=== PATIENT | male | born 1950 | race Caucasian/White ===

== ENCOUNTER 2016-08-18 08:50 | Day surgery (SDC) | payer BC ==
[2016-08-18] MEDS ORDERED: PROPOFOL 10 MG/ML VIAL IV ONE (14:00)
[2016-08-18] MEDS ORDERED: LIDOCAINE 2% MDV (20MG/ML) 20ML VIAL IV ONE (14:00)
[2016-08-18] MEDS ORDERED: MIDAZOLAM HCL 2MG/2ML VIAL IV ONE (14:00)
--- NOTE | 2016-08-19 14:40 | Operative Note ---
DATE OF SURGERY: 08/18/2016 SURGEON: Abhishek Chahal DO REFERRING PHYSICIAN: Tadeo Romero D.O. OPERATION: SCREENING COLONOSCOPY PREOPERATIVE DIAGNOSIS: Colon cancer screening, average risk. POSTOPERATIVE DIAGNOSES: Sigmoid diverticulosis. PREPARATION QUALITY: Good. ESTIMATED BLOOD LOSS: None. SPECIMENS: None. PROCEDURE: After informed consent was obtained with the patient, he was placed in the lateral decubitus position in the endoscopy suite, sedated and monitored by the Department of Anesthesia. Digital rectal examination was unremarkable. A well-lubricated PCF 180 colonoscope was inserted in the rectum and advanced to the cecum. The preparation quality was good. The appendicial orifice, ileocecal valve, cecum, ascending colon, transverse colon, descending colon, sigmoid colon, and rectum were free of inflammatory changes, mass, or lesions, or polyps. There were mild diverticular changes in the sigmoid colon. There was also an inverted diverticulum that was noted. The rectum was unremarkable in forward and in J-turn views. The endoscope was straightened, the rectal ampulla deflated. The endoscope was removed. RECOMMENDATIONS: The patient was advised to resume his medications and follow a high fiber diet. I recommended a repeat exam in 10 years, or sooner should symptoms warrant it. As always, thank you for allowing me to participate in the care of your patient. Abhishek Chahal DO CC: Dr. Abhishek Romero D.O. [facility] SYSTEM[facility]
== END 2016-08-18 11:30 | disposition home or self-care (01) ==
LOC: HOP 08:50
PROVIDERS: ATTEND Internal Medicine Gastroenterology
DX: Z12.11 Encounter for screening for malignant neoplasm of colon (principal); E11.9 Type 2 diabetes mellitus without complications; Z79.84 Long term (current) use of oral hypoglycemic drugs; E78.00 Pure hypercholesterolemia, unspecified; I10 Essential (primary) hypertension; K57.30 Diverticulosis of large intestine without perforation or abscess without bleeding
CPT/HCPCS: 00810; G0121

== ENCOUNTER 2017-12-06 10:18 | Observation (INO) | payer BC ==
[2017-12-06] MEDS ORDERED: ASPIRIN 325 MG TABLET PO ONE (10:48)
--- NOTE | 2017-12-06 10:56 | Emergency Department Record ---
History of Present Illness - General Chief Complaint: Shortness of breath Stated Complaint: WEAKNESS/SHORTNESS OF BREATH Time Seen by Provider: 12/06/17 10:36 Source: Patient Mode of Arrival: Ambulatory Limitations: No limitations - History of Present Illness Initial Comments: The patient is here due to a 2 month hx of progressive SOB and FALL. The patient has a hx of CHF and an EF < 20%. He denies any CP or cough or leg swelling. 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 MD Complaint: Shortness of breath Onset/Timin -: Month(s) Severity: Mild Consistency: Intermittent Improves With: Rest Worsens With: Exertion Known History Of: Congestive heart failure Associated Symptoms: Denies other symptoms Treatments Prior to Arrival: None - Related Data Home Medications Medication Instructions Recorded Confirmed Last Taken Aspirin [Adult Aspirin Regimen] 81 mg PO DAILY 12/06/17 12/06/17 12/06/17 Carvedilol 25 mg PO DAILY 12/06/17 12/06/17 12/06/17 Furosemide 40 mg PO ASDIR 12/06/17 12/06/17 12/06/17 Metformin HCl 500 mg PO BID 12/06/17 12/06/17 12/06/17 Potassium Chloride [Klor-Con 10 meq PO ASDIR 12/06/17 12/06/17 12/06/17 Sprinkle] Sacubitril/Valsartan [Entresto 49 1 tab PO BID 12/06/17 12/06/17 12/06/17 mg-51 mg Tablet] Simvastatin 40 mg PO QHS 12/06/17 12/06/17 12/05/17 Allergies Allergy/AdvReac Type Severity Reaction Status Date / Time No Known Drug Allergies Allergy Verified 12/06/17 10:25 Travel Screening - Travel/Exposure Within Last 30 Days Have you traveled within the last 30 days?: No - Travel/Exposure Within Last Year Have you traveled outside the [place] in the last year?: No - Additonal Travel Details Have you been exposed to anyone with a communicable illness?: No - Travel Symptoms Symptom Screening: None Review of Systems Constitutional: Denies: Chills, Fever Eyes: Denies: Eye discharge ENT: Denies: Congestion Respiratory: Reports: Dyspnea. Denies: Cough, Hemoptysis Cardiovascular: Denies: Arrhythmia, Chest pain Endocrine: Reports: Fatigue Gastrointestinal: Denies: Abdominal pain Genitourinary: Denies: Hematuria Musculoskeletal: Denies: Arthralgia, Back pain Past Medical History - SOCIAL HISTORY Smoking Status: Never smoker Alcohol Use: None Drug Use: None - RESPIRATORY Hx Respiratory Disorders: Yes Hx Pulmonary Embolism: Yes - CARDIOVASCULAR Hx Cardio Disorders: Yes Hx Abnormal EKG: Yes Hx Chest Pain: Yes Hx CHF: Yes Hx Deep Vein Thrombosis: Yes Hx Hypertension: Yes Hx Irregular Heartbeat: Yes Hx Pacemaker/Defib: Yes Comment:: high cholesterol - NEURO Hx Neuro Disorders: No - GI Hx GI Disorders: Yes Hx of Polyps: Yes - Hx Genitourinary Disorders: No - ENDOCRINE Hx Endocrine Disorders: Yes Hx Diabetes: Yes - MUSCULOSKELETAL Hx Musculoskeletal Disorders: No - PSYCH Hx Psych Problems: No - HEMATOLOGY/ONCOLOGY Hx Hematology/Oncology Disorders: Yes Hx Cancer: Yes (angiosarcoma) Hx Chemotherapy: Yes Hx Radiation Therapy: Yes Family Medical History Any Significant Family History?: Yes Hx Cancer: Mother Hx Heart Disease: Father Physical Exam - General General Appearance: Alert, Oriented x3, Cooperative, No acute distress - Head Head exam: Atraumatic, Normocephalic, Normal inspection - Eye Eye exam: Normal appearance, PERRL - ENT Throat exam: Normal inspection. negative: Tonsillar erythema, Tonsillar exudate - Neck Neck exam: Normal inspection, Full ROM. negative: Tenderness - Respiratory Respiratory exam: Normal lung sounds bilaterally. negative: Respiratory distress - Cardiovascular Cardiovascular Exam: Regular rate, Normal rhythm, Normal heart sounds. negative : Diastolic murmur, Systolic murmur - GI/Abdominal GI/Abdominal exam: Soft, Normal bowel sounds. negative: Tenderness - Extremities Extremities exam: Normal inspection, Full ROM, Normal capillary refill. negative: Tenderness - Neurological Neurological exam: Alert. negative: Motor sensory deficit Course Vital Signs 12/06/17 10:33 Temperature 97.5 F L Pulse Rate 60 Respiratory 18 Rate Blood Pressure 105/76 Pulse Ox 97 - Reevaluation(s) Reevaluation #1: The patient is doing well at this time. I did discuss the case with Dr. Girard and he did recommend that the patient stay in the hospital overnight to abiel. I then did discuss the case with Dr. Schneider and he did accept the admission. 12/06/17 12:40 12/06/17 12:43 Medical Decision Making - Lab Data Result diagrams: 12/06/17 10:40 12/06/17 10:40 Disposition Disposition: Admit Clinical Impression: CHF (congestive heart failure) Qualifiers: Heart failure type: unspecified Heart failure chronicity: unspecified Qualified Code(s): I50.9 - Heart failure, unspecified Disposition: Still a Patient at [facility] Decision to Admit: Admit from ER Decision to Admit Date: 12/06/17 Decision to Admit Time: 12:44 Accepting Physician: Jennie Time Discussed w/Accepting Physician: 12:44 Condition: (2) Stable Forms: Patient Portal Access Time of Disposition: 12:44 Quality - Quality Measures Quality Measures: N/A - Blood Pressure Screening View Details: Yes Does Patient Have Any of the Following: No Blood Pressure Classification: Normal BP Reading Systolic Measurement: 105 Diastolic Measurement: 76 Screening for High Blood Pressure: < Normal BP, F/U Not Required > [G8783]
[2017-12-06 11:01] LABS: BASO % 0.3 % (0-6); EOS % 3.4 % (0-6); GRAN % 67.6 % (47-80); HEMATOCRIT 44.6 % (42.0-52.0); HEMOGLOBIN 14.4 gm/dl (14.0-18.0); LYMPH % 19.5 % (16-45); MEAN CELL VOLUME 92.7 fl (81-97); MEAN CORPUSCULAR HEMOGLOBIN 29.9 pg (27-33); MEAN CORPUSCULAR HGB CONC 32.3 g/dl (32-36); MONO % 9.2 % (0-9); PLATELET COUNT 163 K/uL (130-400); RED BLOOD COUNT 4.81 M/uL (4.40-5.70); WHITE BLOOD COUNT W/O DIFF 7.1 K/uL (4.2-12.2)
[2017-12-06 11:14] LABS: BLOOD UREA NITROGEN 14 mg/dL (8-23); CREATININE 1.1 mg/dL (0.7-1.2); EST GLOMERULAR FILTRATION RATE > 60 mL/min
[2017-12-06 11:15] LABS: TOTAL PROTEIN 6.7 g/dL (6.6-8.7)
[2017-12-06 11:17] LABS: GLUCOSE,RANDOM 99 mg/dL (74-109)
[2017-12-06 11:19] LABS: ALT/SGPT 31 U/L (<41); AST/SGOT 26 U/L (10.0-50.0); INR 1.1; PARTIAL THROMBOPLASTIN TIME 27.8 SECONDS (24.5-39.1)
[2017-12-06 11:20] LABS: ALB/GLOB RATIO 1.4 (1.1-1.8); ALBUMIN 3.9 g/dL (4.0-5.0); ALKALINE PHOSPHATASE 103 U/L (40-129); CREATINE PHOSPHOKINASE 73 U/L (39-308)
[2017-12-06] MEDS ORDERED: FUROSEMIDE IV 40MG/4ML VIAL IVP ONE (12:16)
[2017-12-06] MEDS ORDERED: ACETAMINOPHEN 500 MG TABLET PO PRN (14:26)
[2017-12-06] MEDS ORDERED: FUROSEMIDE IV 40MG/4ML VIAL IVP SCH (16:00)
[2017-12-06 17:46] LABS: CKMB 2.9 ng/mL (<6.73)
--- NOTE | 2017-12-06 20:17 | Medical Records Consult ---
DATE OF CONSULTATION: 12/06/17 INDICATION: FATIGUE. ORDERED PHYSICIAN: DR. KWADWO GARCIA. BRIEF HISTORY: David Levin is a 67-year-old male. He sees Dr. Dilshad Dickson for paroxysmal atrial fibrillation, cardiomyopathy, combined systolic and diastolic heart failure. He states he has been feeling fatigued for about three months. No chest pain. He hasn't noticed any lower extremity edema. No shortness of breath. He still cuts the lawn and does yard work. Again, his only complaint is fatigue. Initial lab work is unremarkable showing sodium of 145. Potassium 4. Creatinine 1.1. BUN 14. Hemoglobin 14.4. EKG shows sinus rhythm with first-degree AV block. He was able to be initiated on Entresto but he really hasn't noticed much of a difference to date in terms of his functional capacity. PAST MEDICAL HISTORY: Ventricular tachycardia. Paroxysmal atrial fibrillation. Dilated cardiomyopathy. Ischemic cardiomyopathy. Chronic combined systolic and diastolic heart failure. Hyperlipidemia. ALLERGIES: NO KNOWN DRUG ALLERGIES. MEDICATIONS LISTED ON LAST OFFICE NOTE: Coreg 25 mg b.i.d. Lasix 40 mg every other day Potassium Chloride every other day Metformin 500 mg b.i.d. Simvastatin 40 mg daily Iron Sulfate daily Centrum Silver b.i.d. Aspirin 81 mg daily Fish Oil 300 mg daily Vitamin C Extended Release daily Entresto 49/51 one p.o. every 12 hours Benadryl 25 mg capsule every h.s. REVIEW OF SYSTEMS: GENERAL: No fevers, chills, night sweats. Just generalized fatigue for the last three months. HEENT: No acute hearing/vision changes. CARDIOVASCULAR: No chest pain. No change in functional capacity. No syncope. No defibrillator shocks. PULMONARY: No cough or hemoptysis. GI: No nausea, vomiting. No tarry or bloody stools. : No dysuria or hematuria. ENDOCRINE: Positive for diabetes mellitus. HEME: No unexplained bruising or bleeding. NEUROMUSCULAR: No stroke or seizure history. PHYSICAL EXAMINATION: Vital Signs: Please see E.R. record. GENERAL: Alert, in no apparent distress. HEENT: Normocephalic, atraumatic. NECK: Supple. No JVD. No carotid bruits. CARDIOVASCULAR: Regular rhythm. No murmur is appreciated. PULMONARY: Clear to auscultation. No accessory muscle use. ABDOMEN: Soft, nontender, nondistended. EXTREMITIES: No edema. Pedal pulses are intact. NEUROMUSCULAR: Speech is clear. Answers all questions appropriately. ASSESSMENT/PLAN: 1. FATIGUE, UNCLEAR ETIOLOGY: He is not anemic based on his lab work. 2. HISTORY OF CHRONIC SYSTOLIC HEART FAILURE AND DIASTOLIC HEART FAILURE: He appears euvolemic in the clinic today. A trial could be done of giving him his Lasix every day for two or three days and see if that makes a difference, with close monitoring of his electrolytes. This can be done in an inpatient setting if he wishes. He does have an appointment with Dr. Dickson on December 15. If he wants to go up on his Lasix at home, he could take it every day with potassium every day when he takes the Lasix and then I would give him a lab sheet when he leaves the E.R., if he decides not to be admitted, to have a basic metabolic check just a day or two before he sees Dr. Dickson. It appears he has a non- ischemic cardiomyopathy based on a heart catheterization in 2004. With his diabetes, would certainly recommend statin therapy with blood pressure and lipid management according to guidelines. JOB NUMBER: [id number] MTDD
[2017-12-06] MEDS: CARVEDILOL 12.5 MG TABLET PO SCH (21:07)
[2017-12-06] MEDS: METFORMIN 500 MG TABLET PO SCH (21:08)
[2017-12-06] MEDS: SACUBITRIL PO SCH (21:12)
[2017-12-06] MEDS: VALSARTAN PO SCH (21:12)
[2017-12-06] MEDS ORDERED: ASPIRIN 81 MG TABEC PO SCH (22:00)
[2017-12-06] MEDS ORDERED: SIMVASTATIN 20 MG TABLET PO SCH (22:00)
--- NOTE | 2017-12-07 07:14 | RADIOLOGY REPORT ---
EXAM: CHEST, TWO VIEWS HISTORY: CHEST PAIN. TECHNIQUE: Frontal and lateral views of the chest were obtained. Comparison: Prior chest from 05/16/11. FINDINGS: The heart is enlarged. Right sided pacing device. Osteopenia with COPD. The lungs are clear. No pneumothorax. IMPRESSION: COPD. NO ACUTE CARDIOPULMONARY PROCESS. JOB NUMBER: [id number] MTDD
[2017-12-07 07:18] LABS: BLOOD UREA NITROGEN 14 mg/dL (8-23); EST GLOMERULAR FILTRATION RATE > 60 mL/min; GLUCOSE,RANDOM 88 mg/dL (74-109)
--- NOTE | 2017-12-07 08:14 | Discharge Note ---
VTE H&P Assessment - Risk for VTE Risk for VTE: Yes Risk Level: Very Low Risk Assessment Date: 12/06/17 Risk Assessment Time: 13:00 VTE Orders Placed or Will Be Placed: No VTE Reason for No Prophylaxis: Not Indicated Discharge Medications - Discharge Medications Prescriptions: Furosemide [Lasix] 40 mg PO DAILY #30 tablet Potassium Chloride [Klor-Con] 20 meq PO DAILY #30 tablet.sa Home Medications: Ambulatory Orders Aspirin [Adult Aspirin Regimen] 81 mg PO QHS 12/06/17 [Last Taken 12/06/17] Carvedilol 25 mg PO BID 12/06/17 [Last Taken 12/06/17] Furosemide 40 mg PO Q48H 12/06/17 [Last Taken 12/06/17] Metformin HCl 500 mg PO BID 12/06/17 [Last Taken 12/06/17] Potassium Chloride [Klor-Con] 20 meq PO Q48H 12/06/17 [Last Taken 12/06/17] Sacubitril/Valsartan [Entresto 49 mg-51 mg Tablet] 1 tab PO BID 12/06/17 [Last Taken 12/06/17] Simvastatin 40 mg PO QHS 12/06/17 [Last Taken 12/05/17] Acetaminophen [Tylenol 500Mg Tab] 500 mg PO Q6H PRN tablet 12/07/17 [Last Taken Unknown] Furosemide [Lasix] 40 mg PO DAILY #30 tablet 12/07/17 [Last Taken Unknown] Potassium Chloride [Klor-Con] 20 meq PO DAILY #30 tablet.sa 12/07/17 [Last Taken Unknown] Discharge Note - Date Date of Discharge Note: 12/07/17 Disposition: Home, Self-Care Condition: (2) Stable Additional Instructions: follow up with Dr Christina in one to two weeks follow up with Dr Dickson in one to two weeks lasix 40 mg once a day potassium 20 meq once a day Forms: Patient Portal Access Activity at Discharge: Increase Activity as Tolerated
[2017-12-07] MEDS: METFORMIN 500 MG TABLET PO SCH (09:48)
[2017-12-07] MEDS: CARVEDILOL 12.5 MG TABLET PO SCH (09:49)
[2017-12-07] MEDS: VALSARTAN PO SCH (09:51)
[2017-12-07] MEDS: SACUBITRIL PO SCH (09:51)
[2017-12-07] MEDS ORDERED: POTASSIUM CHLORIDE 20 MEQ TABLET PO SCH (10:00)
[2017-12-07] MEDS ORDERED: FUROSEMIDE IV 40MG/4ML VIAL IVP SCH (10:00)
[2017-12-07] MEDS ORDERED: FLU VAC QS 2017-18 (INPT, 6MO+) 60MCG/0.5ML IM ONE (10:00)
--- NOTE | 2017-12-07 12:30 | History and Physical Report ---
DATE: 12/06/2017 CHIEF COMPLAINT: Short of breath. HISTORY OF PRESENT ILLNESS: This 67-year-old male states he has been short of breath progressively worse over the last 2 months. He has a history of congestive heart failure with ejection fraction of 20%. He has a pacer defibrillator. His senior telecommunications engineer is Dr. Dickson and his partner Dr. Girard was consulted and he recommended by phone to diurese the patient in the hospital overnight. The patient states that the reason he came to the hospital was to get some free samples of Entresto 49/51 one b.i.d. He was running out of the free samples he was getting because it was too expensive. He was getting it through the specialty clinic. However, he saw [facility] and I think Dr. Dickson was also there. They recommended he go over to the ER for either an EKG or an evaluation, and at that point Dr. Olguin saw him and he was admitted to the hospital for diuresis and serial cardiac enzymes. He also states the heat was bothering him. He really did not seem in any distress when I evaluated him. He says that he is diuresing nicely at this point. He had a urinal in front of him with about 400 mL in it with dark urine but mostly he said he was here to have the Entresto samples and he also had outpatient surgery scheduled at of today but he canceled that for tear duct surgery for placing stents in his eyes on the left eye. 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 PAST MEDICAL HISTORY: Diabetes, hypercholesterolemia, cardiomyopathy with a low ejection fraction, hypertension, history of congestive heart failure, chest pain, pulmonary embolism, GERD, polyps in the colon, diabetes mellitus [id number] on metformin. His primary physician is Dr. Tadeo Christina. PAST SURGICAL HISTORY: Hernia x2, T&A, defibrillator/pacer, colonoscopy, tumor above the left eye. MEDICATIONS: 1. Aspirin 81 mg daily. 2. Carvedilol 25 mg b.i.d. 3. Metformin 500 mg b.i.d. 4. Lasix 40 mg daily. 5. Potassium chloride 10 mEq daily. 6. Entresto 49/51 one b.i.d. 7. Simvastatin 40 mg at h.s. ALLERGIES: No known drug allergies. FAMILY/PSYCHOSOCIAL HISTORY: Mother had cancer. Father had heart disease. Never smoked. No alcohol or drug use. REVIEW OF SYSTEMS: HEENT: No upper respiratory infection symptoms, cough, cold, or congestion. Cardiovascular: No chest pain, palpitations, or arrhythmia. Respiratory: He states he is short of breath progressively worse over the last 2 months. See Chief Complaint. Gastrointestinal: No nausea, vomiting, diarrhea, black stools, or bloody stools. Genitourinary: No dysuria, hematuria, frequency, or burning on urination. Musculoskeletal: No joint or bone abnormalities. Neurological: No CVA, paralysis, or paresthesias. Endocrine: He has diabetes mellitus type 2, on metformin. Integument: No rash, ulcers, change in moles, or yellow skin. He had angiosarcoma of the skin of the forehead and he also had multiple surgeries on that spot and he was supposed to have a [facility] surgery today to place stents in his tear ducts in the left eye which has been canceled. PHYSICAL EXAMINATION: VITALS: Height 6 feet 2 inches, weight 213 pounds, temperature 97.5, blood pressure 105/76, respiratory rate 18, pulse ox 97% on room air. HEENT: Pupils are equal, round, and reactive to light and accommodation. Extraocular muscles are intact. Throat is clear. Nose is clear. Tympanic membranes are owens. NECK: Supple. No jugular venous distention. No hepatojugular reflux. No carotid bruits. Thyroid is smooth. CARDIOVASCULAR: Regular rate and rhythm without murmurs, clicks, rubs, or gallops. RESPIRATORY: No rales heard in the posterior bases; however, he has diuresed a bit. ABDOMEN: Soft, nontender. No hepatosplenomegaly, no masses, no tenderness. Bowel sounds are active. No bruits. EXTREMITIES: No pitting edema, no cyanosis, no clubbing. Full range of motion. Peripheral pulses are good. BREASTS: Normal male breasts. RECTAL: Exam deferred. GENITALIA: Deferred. NEUROLOGIC: Cranial nerves II-XII intact. No gross defects. Sensation normal, strength normal. Deep tendon reflexes equal bilaterally with Babinski negative. MENTAL STATUS: Alert and oriented x3. IMPRESSION: 1. Congestive heart failure. 2. Dyspnea. 3. Cardiomyopathy with ejection fraction of about 20% with a pacemaker and defibrillator. 4. History of angiosarcoma of the forehead and had 2 surgeries, chemo and radiation in 2016 and he is scheduled for a [facility] stent placement in the ducts of the left eye. 5. History of hypercholesterolemia. 6. History of hypertension. PLAN: Diuresis 40 mg IV b.i.d. Serial cardiac enzymes. Serial EKGs. Will discuss the case with [facility]. His laboratory showing troponin T was normal. The NT-proBNP was 7902. BUN 14, creatinine 1.1, potassium 4.0. EKG showing a paced rhythm. Chest x-ray showing COPD, nothing acute. MTDD
--- NOTE | 2017-12-07 12:30 | Discharge Summary ---
DATE: 12/07/2017 DISCHARGE DIAGNOSES: 1. Mild congestive heart failure. 2. Cardiomyopathy with pacer/defibrillator. 3. Diabetes mellitus type 2. ATTENDING PHYSICIAN: Lauro Schneider DO REASON FOR HOSPITALIZATION: This 67-year-old male slightly short of breath progressively worse over 2-3 months. 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 Unfortunately, they did not have any samples available and they felt he still has about a week's worth of Entresto left but while he was there, he told them he was a little short of breath. They recommended he go to the emergency department and he really did not feel that much short of breath; however, he just mentioned it. He was evaluated by Dr. Olguin in the emergency department, given some IV Lasix, and admitted to the hospital for observation and further evaluation. Dr. Girard was aware of this. He felt that maybe a little diuresis would help him and then to follow up with Dr. Dickson afterwards. After the 40 of Lasix was given in the emergency department, he said he felt much better, almost to the fact that he could even go home. He was put in the hospital and monitor showing a paced rhythm with some PVCs and occasionally he goes into his own rhythm at 10 p.m. on 12/06/2017 which had small QRS complexes. The computer was not reading those and reading the rhythm out as a bradycardia, which is was more the pacemaker was shut off and he was in his own rhythm which appears sinus with a first-degree AV block. He was asymptomatic during this episode and he has been asymptomatic throughout the hospitalization. SIGNIFICANT FINDINGS: Cardiac enzymes normal x3 time points. CPK and troponin T. His brain natriuretic peptide is 7900. Potassium was on the low end of normal at 3.6 on discharge and his BUN was 14, creatinine 1.0, sodium 144. EKG showing paced rhythm with premature ventricular contraction and some underlying rhythm. He has a pacer/defibrillator. Chest x-ray showing no acute cardiopulmonary process, COPD. He had no edema in his legs. His belly was a little bit swollen. The heat was very extreme on the day he came in, in the 90s. This may have had some bearing on his dyspnea. THERAPY PROVIDED: He was given 1 dose of IV Lasix. He diuresed nicely. He was also switched over to Lasix once a day instead of every 48 hours which he was having at home. Also, the potassium is 20 mEq now once a day instead of every other day. This may need to be adjusted back to every 48 hours depending on how he does when he sees Dr. Dickson in 1 week. HOSPITAL COURSE: Really, he has been asymptomatic during the hospitalization. He was only slightly short of breath. Most he came into the hospital to get samples of Entresto and things evolved as he was in the hospital. CONDITION ON DISCHARGE: Improved and stable. Pacemaker looks like it is functioning adequately but I think that it would be nice to have the pacemaker interrogated by Dr. Dickson to make sure there are no concerns about what is happening with the pacemaker/defibrillator. DISCHARGE INSTRUCTIONS: Follow up with Dr. Dickson next Monday in 8 days as scheduled. Follow up with Dr. Christina in 1-2 weeks to get him caught up on what has happened. DISCHARGE MEDICATION: 1. Lasix 40 mg daily. 2. Potassium chloride 20 mEq daily. 3. Carvedilol 25 mg b.i.d. 4. Metformin 500 mg b.i.d. 5. Entresto 49/51 b.i.d. 6. Simvastatin 40 mg q.h.s. 7. Aspirin 81 mg daily. MTDD
== END 2017-12-07 10:15 | disposition home or self-care (01) ==
LOC: ER 10:18 → MEDSURG 13:39
PROVIDERS: ADMIT Emergency Medicine; ATTEND Emergency Medicine
DX: I50.9 Heart failure, unspecified (principal); I48.0 Paroxysmal atrial fibrillation; I10 Essential (primary) hypertension; E78.00 Pure hypercholesterolemia, unspecified; E11.9 Type 2 diabetes mellitus without complications; Z79.84 Long term (current) use of oral hypoglycemic drugs; Z95.810 Presence of automatic (implantable) cardiac defibrillator; Z86.718 Personal history of other venous thrombosis and embolism; Z86.711 Personal history of pulmonary embolism; Z85.828 Personal history of other malignant neoplasm of skin; I42.8 Other cardiomyopathies; I47.2 Ventricular tachycardia
CPT/HCPCS: 82550; 83735; 85025; 85730; 85610; 82553 ×2; 80048; 80053; 84484 ×2; 83880; 71046; 94760; 93005 ×2; 93010 ×2; G0378 ×2; 96374; 99217; 99220; 99285; J1940

== ENCOUNTER 2018-02-23 12:09 | Emergency (ER) | payer BC ==
[2018-02-23] MEDS ORDERED: ASPIRIN 81 MG CHEWABLE TABLET PO ONE (12:42)
--- NOTE | 2018-02-23 12:57 | Emergency Department Record ---
History of Present Illness - General Chief Complaint: Cough Stated Complaint: COUGHING/SHORT OF BREATH Time Seen by Provider: 02/23/18 12:29 Mode of Arrival: Ambulatory - History of Present Illness Initial Comments: patient coughing with a hoarse voice and his granddaughter has a cough and the patient has productive sputum and he was in the hospital november 2017 for CHF. Patient has a pacer defibrillator and he is able to carry on a conversation and not sob laying flat. Onset/Timin -: Days(s) Consistency: Intermittent - Related Data Home Medications Medication Instructions Recorded Confirmed Last Taken Clopidogrel Bisulfate [Plavix] 75 mg PO DAILY 02/23/18 02/23/18 02/23/18 Fish Oil/Dha/Epa [Fish Oil 1,200 1 tab PO DAILY 02/23/18 02/23/18 02/23/18 mg Fish Oil] Multivit-Min/FA/Lycopen/Lutein 1 tab PO DAILY 02/23/18 02/23/18 02/23/18 [Centrum Silver Men Tablet] Previous Rx's Medication Instructions Recorded Acetaminophen [Tylenol 500Mg Tab] 500 mg PO Q6H PRN tablet 12/07/17 Furosemide [Lasix] 40 mg PO DAILY #30 tablet 12/07/17 Potassium Chloride [Klor-Con] 20 meq PO DAILY #30 tablet.sa 12/07/17 Azithromycin 250 mg PO DAILY #6 tablet 02/23/18 Allergies Allergy/AdvReac Type Severity Reaction Status Date / Time No Known Drug Allergies Allergy Verified 02/23/18 12:11 Travel Screening - Travel/Exposure Within Last 30 Days Have you traveled within the last 30 days?: No - Travel/Exposure Within Last Year Have you traveled outside the [place] in the last year?: No - Additonal Travel Details Have you been exposed to anyone with a communicable illness?: No - Travel Symptoms Symptom Screening: None Review of Systems Reviewed: No additional complaints except as noted below Constitutional: Reports: As per HPI. Denies: Chills, Fever, Malaise, Night sweats, Weakness, Weight change Eyes: Reports: As per HPI. Denies: Eye discharge, Eye pain, Photophobia, Vision change ENT: Reports: As per HPI, Congestion, Throat pain. Denies: Dental pain, Ear pain, Epistaxis, Hearing loss Respiratory: Reports: As per HPI, Cough. Denies: Dyspnea, Hemoptysis, Stridor, Wheezes Cardiovascular: Reports: As per HPI. Denies: Arrhythmia, Chest pain, Dyspnea on exertion, Edema, Murmurs, Orthopnea, Palpitations, Paroxysmal nocturnal dyspnea, Rheumatic Fever, Syncope Endocrine: Reports: As per HPI. Denies: Fatigue, Heat or cold intolerance, Polydipsia, Polyuria Gastrointestinal: Reports: As per HPI. Denies: Abdominal pain, Constipation, Diarrhea, Hematemesis, Hematochezia, Melena, Nausea, Vomiting Genitourinary: Reports: As per HPI. Denies: Dysuria, Frequency, Hematuria, Incontinence, Retention, Testicular pain, Testicular mass, Urgency Musculoskeletal: Reports: As per HPI. Denies: Arthralgia, Back pain, Gout, Joint swelling, Myalgia, Neck pain Skin: Reports: As per HPI. Denies: Bruising, Change in color, Change in hair/ nails, Lesions, Pruritus, Rash Neurological: Reports: As per HPI. Denies: Abnormal gait, Confusion, Headache, Numbness, Paresthesias, Seizure, Tingling, Tremors, Vertigo, Weakness Psychiatric: Reports: As per HPI. Denies: Anxiety, Auditory hallucinations, Depression, Homicidal thoughts, Suicidal thoughts, Visual hallucinations Hematological/Lymphatic: Reports: As per HPI. Denies: Anemia, Blood Clots, Easy bleeding, Easy bruising, Swollen glands Past Medical History - SOCIAL HISTORY Smoking Status: Never smoker Alcohol Use: None Drug Use: None - RESPIRATORY Hx Respiratory Disorders: Yes Hx Asthma: No Hx Bronchitis: No Hx COPD: No Hx Dyspnea: No Hx Pneumonia: No Hx Pulmonary Embolism: Yes Hx Sleep Apnea: No Hx Tuberculosis: No Hx of CPAP: No - CARDIOVASCULAR Hx Cardio Disorders: Yes Hx Abnormal EKG: Yes Hx Cardiac Cath: No Hx Chest Pain: Yes Hx CHF: Yes Hx Deep Vein Thrombosis: Yes Hx Edema: No Hx Heart Attack: No Hx Hypertension: Yes Hx Hypotension: No Hx Irregular Heartbeat: Yes Hx Palpitations: No Hx Pacemaker/Defib: Yes Hx Vascular Disease: No Comment:: high cholesterol - NEURO Hx Neuro Disorders: No - GI Hx GI Disorders: Yes Hx Abdominal Pain: No Hx Celiac Disease: No Hx Crohn's Disease: No Hx Diverticulitis: No Hx GI Bleed: No Hx Reflux: No Hx Hepatitis/Jaundice: No Hx Hiatal Hernia: No Hx Irritable Bowel: No Hx Liver Disease: No Hx Nausea/Vomiting: No Hx Obstructive Bowel: No Hx Pancreatitis: No Hx Rectal Bleeding: No Hx Ulcer: No Hx Wt Loss/Wt Gain: No Hx of Polyps: Yes - Hx Genitourinary Disorders: No - ENDOCRINE Hx Endocrine Disorders: Yes Hx Diabetes: Yes Hx Thyroid Disease: No - MUSCULOSKELETAL Hx Musculoskeletal Disorders: No - PSYCH Hx Psych Problems: No - HEMATOLOGY/ONCOLOGY Hx Hematology/Oncology Disorders: Yes Hx Anemia: No Hx Blood Disorders: No Hx Bruising: Yes Hx Cancer: Yes (angiosarcoma) Hx Chemotherapy: Yes Hx Radiation Therapy: Yes Hx Clotting Problems: No Hx Sickle Cell Disease: No Hx Unexplained Bleeding: No Hx Blood Transfusions: No Hx Blood Transfusion Reaction: No Family Medical History Any Significant Family History?: Yes Hx Cancer: Mother Hx Heart Disease: Father Physical Exam - General General Appearance: Alert, Oriented x3, Cooperative, No acute distress - Head Head exam: Normal inspection - Eye Eye exam: Normal appearance, PERRL Pupils: Normal accommodation - ENT ENT exam: Normal exam, Mucous membranes moist, Normal external ear exam, Normal orophraynx, TM's normal bilaterally Ear exam: Normal external inspection. negative: External canal tenderness Nasal Exam: Normal inspection. negative: Discharge, Sinus tenderness Mouth exam: Normal external inspection, Tongue normal, Other (hoarse voice) Teeth exam: Normal inspection. negative: Dental caries Throat exam: Normal inspection. negative: Tonsillar erythema, Tonsillar exudate - Neck Neck exam: Normal inspection, Full ROM. negative: Tenderness - Respiratory Respiratory exam: Normal lung sounds bilaterally, Other (cough with deep breathing). negative: Rales, Respiratory distress, Wheezes - Cardiovascular Cardiovascular Exam: Regular rate, Normal rhythm, Normal heart sounds - GI/Abdominal GI/Abdominal exam: Soft, Normal bowel sounds. negative: Tenderness - Rectal Rectal exam: Deferred - exam: Deferred - Extremities Extremities exam: Normal inspection, Full ROM, Normal capillary refill. negative: Pedal edema, Tenderness - Back Back exam: Reports: Normal inspection, Full ROM. Denies: Muscle spasm, Rash noted, Tenderness - Neurological Neurological exam: Alert, Normal gait, Oriented X3, Reflexes normal - Psychiatric Psychiatric exam: Normal affect, Normal mood - Skin Skin exam: Dry, Intact, Normal color, Warm Course Vital Signs 02/23/18 12:19 Temperature 97.7 F Pulse Rate 63 Respiratory 20 Rate Blood Pressure 120/83 Pulse Ox 97 Medical Decision Making - Data Complexity MDM Data: Labs Ordered and/or Reviewed (wbc 4,600, step negative,trop t neg), X- Ray Ordered and/or Reviewed (No acute changes and similiar to previous chest xray 12/07/2017), EKG Ordered and/or Reviewed (Sinus LBBB ,first degree av block, ) - Lab Data Result diagrams: 02/23/18 12:55 02/23/18 12:55 Disposition Clinical Impression: Bronchitis Disposition: Home, Self-Care Condition: (1) Good Instructions: Acute Bronchitis (ED) Additional Instructions: follow up with Dr. Romero in 5 days rest and use tylenol for fever robitussin DM cough syrup 10 ml every 4 hours Prescriptions: Azithromycin 250 mg PO DAILY #6 tablet Forms: Patient Portal Access Time of Disposition: 13:42 Quality - Quality Measures Quality Measures: N/A - Blood Pressure Screening Does Patient Have Any of the Following: No Blood Pressure Classification: Pre-Hypertensive BP Reading Systolic Measurement: 120 Diastolic Measurement: 83 Screening for High Blood Pressure: < Pre-Hypertensive BP, F/U Documented > [ G8950] Pre-Hypertensive Follow-up Interventions: Referral to alternative/primary care provider.
[2018-02-23 13:05] LABS: BASO % 0.4 % (0-6); EOS % 6.3 % (0-6); GRAN % 59.4 % (47-80); HEMATOCRIT 40.4 % (42.0-52.0); HEMOGLOBIN 12.9 gm/dl (14.0-18.0); LYMPH % 24.6 % (16-45); MEAN CELL VOLUME 93.5 fl (81-97); MEAN CORPUSCULAR HGB CONC 31.9 g/dl (32-36); MONO % 9.3 % (0-9); PLATELET COUNT 130 K/uL (130-400); RED BLOOD COUNT 4.32 M/uL (4.40-5.70); RED CELL DISTRIBUTION WIDTH 15.2 % (11.5-14.5); WHITE BLOOD COUNT W/O DIFF 4.6 K/uL (4.2-12.2)
[2018-02-23 13:06] LABS: MEAN CORPUSCULAR HEMOGLOBIN 29.8 pg (27-33)
[2018-02-23 13:16] LABS: BLOOD UREA NITROGEN 14 mg/dL (8-23); CREATININE 0.9 mg/dL (0.7-1.2); EST GLOMERULAR FILTRATION RATE > 60 mL/min
[2018-02-23 13:19] LABS: GLUCOSE,RANDOM 111 mg/dL (74-109)
[2018-02-23] MEDS ORDERED: AZITHROMYCIN 500 MG TABLET PO ONE (13:39)
--- NOTE | 2018-02-25 22:45 | RADIOLOGY REPORT ---
EXAM: CHEST 2 VIEWS HISTORY: COUGH AND CHEST TIGHTNESS FOR A DAY. TECHNIQUE: PA and lateral views. COMPARISON: Two-view chest 12/06/17. FINDINGS: Mild cardiomegaly, stable. Mild torsion of the aorta, stable. ICD remains in place. No pneumothorax or pleural effusion evident. The lungs again appear hyperinflated suggesting underlying COPD. No definite acute infiltrate seen when comparison is made with the prior study. Hypertrophic spurring in the spine. IMPRESSION: 1. MILD CARDIOMEGALY. 2. HYPERINFLATION SUGGESTING COPD. 3. PACEMAKER BEFORE. 4. NO DEFINITE ACUTE INFILTRATE SEEN. JOB NUMBER: [id number] [facility]
== END 2018-02-23 14:30 | disposition home or self-care (01) ==
LOC: ER 12:09
DX: J20.9 Acute bronchitis, unspecified (principal); R07.89 Other chest pain; I50.9 Heart failure, unspecified; I10 Essential (primary) hypertension; E11.9 Type 2 diabetes mellitus without complications; Z95.810 Presence of automatic (implantable) cardiac defibrillator; Z79.84 Long term (current) use of oral hypoglycemic drugs
CPT/HCPCS: 71046; 80048; 84484; 85025; 85730; 87880; 93005; 93010; 99284

== ENCOUNTER 2018-06-22 11:20 | Emergency (ER) | payer BC ==
[2018-06-22 11:58] LABS: BASO % 0.3 % (0-6); EOS % 2.3 % (0-6); GRAN % 58.6 % (47-80); HEMATOCRIT 47.4 % (42.0-52.0); HEMOGLOBIN 15.1 gm/dl (14.0-18.0); LYMPH % 27.3 % (16-45); MEAN CELL VOLUME 96.1 fl (81-97); MEAN CORPUSCULAR HEMOGLOBIN 30.6 pg (27-33); MEAN CORPUSCULAR HGB CONC 31.9 g/dl (32-36); MEAN PLATELET VOLUME 10.7 fl (7.4-10.4); MONO % 11.5 % (0-9); PLATELET COUNT 164 K/uL (130-400); RED BLOOD COUNT 4.93 M/uL (4.40-5.70); RED CELL DISTRIBUTION WIDTH 15.3 % (11.5-14.5)
[2018-06-22 12:12] LABS: BLOOD UREA NITROGEN 12 mg/dL (8-23); CREATININE 1.1 mg/dL (0.7-1.2); EST GLOMERULAR FILTRATION RATE > 60 mL/min
[2018-06-22 12:13] LABS: TOTAL PROTEIN 6.9 g/dL (6.6-8.7)
[2018-06-22 12:15] LABS: GLUCOSE,RANDOM 121 mg/dL (74-109)
[2018-06-22 12:17] LABS: ALB/GLOB RATIO 1.3 (1.1-1.8); ALBUMIN 3.9 g/dL (4.0-5.0); ALT/SGPT 10 U/L (<41); AST/SGOT 17 U/L (10.0-50.0)
[2018-06-22 12:18] LABS: ALKALINE PHOSPHATASE 74 U/L (40-129)
--- NOTE | 2018-06-22 12:41 | Emergency Department Record ---
History of Present Illness - General Chief Complaint: Shortness of breath Stated Complaint: SOB/WEAKNESS Time Seen by Provider: 06/22/18 11:28 Source: Patient Mode of Arrival: Wheelchair Limitations: No limitations - History of Present Illness Initial Comments: pt has been increasingly sob and weak. he fell 2 days ago hitting his head Complaint: Shortness of breath Onset/Timin -: Week(s) Severity: Moderate Quality: Aching Consistency: Constant, Intermittent Improves With: Nothing Worsens With: Exertion Known History Of: Congestive heart failure Associated Symptoms: Denies other symptoms - Related Data Home Medications Medication Instructions Recorded Confirmed Last Taken Apixaban [Eliquis] 5 mg PO BID 06/22/18 06/22/18 1 Day Ago ~06/21/18 Lisinopril 40 mg PO DAILY 06/22/18 06/22/18 1 Day Ago ~06/21/18 Previous Rx's Medication Instructions Recorded Acetaminophen [Tylenol 500Mg Tab] 500 mg PO Q6H PRN tablet 12/07/17 Furosemide [Lasix] 40 mg PO DAILY #30 tablet 12/07/17 Potassium Chloride [Klor-Con] 20 meq PO DAILY #30 tablet.sa 12/07/17 Allergies Allergy/AdvReac Type Severity Reaction Status Date / Time No Known Drug Allergies Allergy Verified 06/22/18 11:32 Travel Screening - Travel/Exposure Within Last 30 Days Have you traveled within the last 30 days?: No - Travel/Exposure Within Last Year Have you traveled outside the [place] in the last year?: No - Additonal Travel Details Have you been exposed to anyone with a communicable illness?: No - Travel Symptoms Symptom Screening: None Review of Systems Reviewed: No additional complaints except as noted below Constitutional: Reports: As per HPI. Denies: Chills, Fever, Malaise, Night sweats, Weakness, Weight change Eyes: Reports: As per HPI. Denies: Eye discharge, Eye pain, Photophobia, Vision change ENT: Reports: As per HPI. Denies: Congestion, Dental pain, Ear pain, Epistaxis , Hearing loss, Throat pain Respiratory: Reports: As per HPI, Dyspnea. Denies: Cough, Hemoptysis, Stridor, Wheezes Cardiovascular: Reports: As per HPI. Denies: Arrhythmia, Chest pain, Dyspnea on exertion, Edema, Murmurs, Orthopnea, Palpitations, Paroxysmal nocturnal dyspnea, Rheumatic Fever, Syncope Endocrine: Reports: As per HPI. Denies: Fatigue, Heat or cold intolerance, Polydipsia, Polyuria Gastrointestinal: Reports: As per HPI. Denies: Abdominal pain, Constipation, Diarrhea, Hematemesis, Hematochezia, Melena, Nausea, Vomiting Genitourinary: Reports: As per HPI. Denies: Dysuria, Frequency, Hematuria, Incontinence, Retention, Testicular pain, Testicular mass, Urgency Musculoskeletal: Reports: As per HPI. Denies: Arthralgia, Back pain, Gout, Joint swelling, Myalgia, Neck pain Skin: Reports: As per HPI. Denies: Bruising, Change in color, Change in hair/ nails, Lesions, Pruritus, Rash Neurological: Reports: As per HPI. Denies: Abnormal gait, Confusion, Headache, Numbness, Paresthesias, Seizure, Tingling, Tremors, Vertigo, Weakness Psychiatric: Reports: As per HPI. Denies: Anxiety, Auditory hallucinations, Depression, Homicidal thoughts, Suicidal thoughts, Visual hallucinations Hematological/Lymphatic: Reports: As per HPI. Denies: Anemia, Blood Clots, Easy bleeding, Easy bruising, Swollen glands Past Medical History - SOCIAL HISTORY Smoking Status: Never smoker Alcohol Use: None Drug Use: None - RESPIRATORY Hx Respiratory Disorders: Yes Hx Asthma: No Hx Bronchitis: No Hx COPD: No Hx Dyspnea: No Hx Pneumonia: No Hx Pulmonary Embolism: Yes Hx Sleep Apnea: No Hx Tuberculosis: No Hx of CPAP: No - CARDIOVASCULAR Hx Cardio Disorders: Yes Hx Abnormal EKG: Yes Hx Cardiac Cath: No Hx Chest Pain: Yes Hx CHF: Yes Hx Deep Vein Thrombosis: Yes Hx Edema: No Hx Heart Attack: No Hx Hypertension: Yes Hx Hypotension: No Hx Irregular Heartbeat: Yes Hx Palpitations: No Hx Pacemaker/Defib: Yes Hx Vascular Disease: No Comment:: high cholesterol - NEURO Hx Neuro Disorders: No - GI Hx GI Disorders: Yes Hx Abdominal Pain: No Hx Celiac Disease: No Hx Crohn's Disease: No Hx Diverticulitis: No Hx GI Bleed: No Hx Reflux: No Hx Hepatitis/Jaundice: No Hx Hiatal Hernia: No Hx Irritable Bowel: No Hx Liver Disease: No Hx Nausea/Vomiting: No Hx Obstructive Bowel: No Hx Pancreatitis: No Hx Rectal Bleeding: No Hx Ulcer: No Hx Wt Loss/Wt Gain: No Hx of Polyps: Yes - Hx Genitourinary Disorders: No - ENDOCRINE Hx Endocrine Disorders: Yes Hx Diabetes: Yes Hx Thyroid Disease: No - MUSCULOSKELETAL Hx Musculoskeletal Disorders: No - PSYCH Hx Psych Problems: No - HEMATOLOGY/ONCOLOGY Hx Hematology/Oncology Disorders: Yes Hx Anemia: No Hx Blood Disorders: No Hx Bruising: Yes Hx Cancer: Yes (angiosarcoma) Hx Chemotherapy: Yes Hx Radiation Therapy: Yes Hx Clotting Problems: No Hx Sickle Cell Disease: No Hx Unexplained Bleeding: No Hx Blood Transfusions: No Hx Blood Transfusion Reaction: No Family Medical History Any Significant Family History?: Yes Hx Cancer: Mother Hx Heart Disease: Father Physical Exam - General General Appearance: Alert, Oriented x3, Cooperative, Mild distress - Head Head exam: Normal inspection - Eye Eye exam: Normal appearance, PERRL, EOMI Pupils: Normal accommodation - ENT ENT exam: Normal exam, Mucous membranes moist, Normal external ear exam, Normal orophraynx Ear exam: Normal external inspection. negative: External canal tenderness Nasal Exam: Normal inspection. negative: Discharge, Sinus tenderness Mouth exam: Normal external inspection, Tongue normal Teeth exam: Normal inspection. negative: Dental caries Throat exam: Normal inspection. negative: Tonsillar erythema, Tonsillar exudate - Neck Neck exam: Normal inspection, Full ROM. negative: Tenderness - Respiratory Respiratory exam: Normal lung sounds bilaterally. negative: Respiratory distress - Cardiovascular Cardiovascular Exam: Regular rate, Normal rhythm, Normal heart sounds - GI/Abdominal GI/Abdominal exam: Soft, Normal bowel sounds. negative: Tenderness - Rectal Rectal exam: Deferred - exam: Deferred - Extremities Extremities exam: Full ROM, Normal capillary refill, Pedal edema. negative: Tenderness - Back Back exam: Reports: Normal inspection, Full ROM. Denies: Muscle spasm, Rash noted, Tenderness - Neurological Neurological exam: Alert, CN II-XII intact, Normal gait, Oriented X3 - Psychiatric Psychiatric exam: Normal affect, Normal mood - Skin Skin exam: Dry, Intact, Normal color, Warm Course Vital Signs 06/22/18 06/22/18 06/22/18 11:22 12:05 12:08 Temperature 97.7 F Pulse Rate 70 Pulse Rate [ 70 Visual Merchandiser ] Respiratory 20 20 Rate Blood Pressure 96/63 Blood Pressure 87/66 [Right Arm] Pulse Ox 97 99 - Reevaluation(s) Reevaluation #1: 06/22/18 15:04 pt feels better. Medical Decision Making - Lab Data Result diagrams: 06/22/18 11:30 06/22/18 11:30 Lab Results 06/22/18 06/22/18 06/22/18 Range/Units 11:30 11:30 11:30 WBC 6.0 (4.2-12.2) K/uL RBC 4.93 (4.40-5.70) M/uL Hgb 15.1 (14.0-18.0) gm/dl Hct 47.4 (42.0-52.0) % MCV 96.1 (81-97) fl MCH 30.6 (27-33) pg MCHC 31.9 L (32-36) g/dl RDW 15.3 H (11.5-14.5) % Plt Count 164 (130-400) K/uL MPV 10.7 H (7.4-10.4) fl Gran % 58.6 (47-80) % Lymphocytes % 27.3 (16-45) % Monocytes % 11.5 H (0-9) % Eosinophils % 2.3 (0-6) % Basophils % 0.3 (0-6) % D-Dimer 0.31 (0-0.59) mg/L FEU Sodium 142 (136-145) mmol/L Potassium 4.3 (3.4-4.5) mmol/L Chloride 103 (98-107) mmol/L Carbon Dioxide 26.0 (22-29) mmol/L Anion Gap 13.0 (7-16) BUN 12 (8-23) mg/dL Creatinine 1.1 (0.7-1.2) mg/dL Estimated GFR > 60 mL/min Random Glucose 121 H (74-109) mg/dL Calcium 9.1 (8.8-10.2) mg/dL Total Bilirubin 1.00 (0.2-1.0) mg/dL AST 17 (10.0-50.0) U/L ALT 10 (<41) U/L Alkaline Phosphatase 74 (40-129) U/L NT-Pro-B Natriuret Pep 5958.00 H (<125) pg/mL Total Protein 6.9 (6.6-8.7) g/dL Albumin 3.9 L (4.0-5.0) g/dL Globulin 3.0 (1.4-4.8) gm/dL Albumin/Globulin Ratio 1.3 (1.1-1.8) Disposition Disposition: Discharge Clinical Impression: Weakness CHF (congestive heart failure) Qualifiers: Heart failure type: unspecified Heart failure chronicity: acute on chronic Qualified Code(s): I50.9 - Heart failure, unspecified Disposition: Home, Self-Care Condition: (1) Good Instructions: Heart Failure (ED), Low-Sodium Diet (ED) Additional Instructions: follow up with family doctor. return sooner if worse Forms: Patient Portal Access Quality - Quality Measures Quality Measures: N/A - Blood Pressure Screening Does Patient Have Any of the Following: No Blood Pressure Classification: Normal BP Reading Systolic Measurement: 96 Diastolic Measurement: 63 Screening for High Blood Pressure: < Normal BP, F/U Not Required > [G8783]
[2018-06-22] MEDS: FUROSEMIDE IV 20MG/2ML VIAL IVP ONE (13:34)
[2018-06-22 13:51] LABS: THYROXINE (T4) 5.63 ug/dL (4.5-11.7)
[2018-06-22 14:38] LABS: URINE APPEARANCE CLEAR; URINE BILIRUBIN NEGATIVE (NEGATIVE); URINE BLOOD TRACE-I (NEGATIVE); URINE COLOR ORANGE; URINE GLUCOSE (UA) NEGATIVE (NEGATIVE); URINE KETONE NEGATIVE (NEGATIVE); URINE LEUKOCYTE ESTERASE NEGATIVE (NEGATIVE); URINE PROTEIN TRACE (NEGATIVE)
[2018-06-22 14:51] LABS: URINE BACTERIA NONE SEEN; URINE EPITHELIAL CELLS 0 - 2 (FEW); URINE MUCUS LIGHT; URINE NITRITE POSITIVE (NEGATIVE); URINE RBC 0 - 2 (NONE SEEN); URINE WBC 0 - 2 (0-2/hpf)
--- NOTE | 2018-06-24 17:00 | CT SCAN REPORT ---
DATE: 06/22/2018. EXAM: NONCONTRAST CT OF THE HEAD. HISTORY: WEAKNESS AND MALAISE. TECHNIQUE: Noncontrast CT of the head. COMPARISON: None. FINDINGS: No midline shift, mass effect, or abnormal intra- or extra-axial fluid collection. No cerebral edema, focal mass, or intracranial hemorrhages detected. Mild, diffuse prominence of the ventricles and cortical cell sag compatible with age-related cerebral volume loss. Mild periventricular white matter hypoattenuation suggesting chronic small-vessel ischemic change. No displaced skull fracture detected. Small polyp or retention cyst in the left maxillary sinus. Paranasal sinuses are otherwise clear. IMPRESSION: 1. NO ACUTE INTRACRANIAL FINDINGS. 2. MILD, DIFFUSE CEREBRAL VOLUME LOSS, LIKELY AGE RELATED. SUGGESTION OF MILD SMALL-VESSEL ISCHEMIC WHITE MATTER CHANGES. 3. NOT NOTED ABOVE, THERE IS A FOCAL HYPODENSITY NEAR THE LEFT BASIL GANGLIA WHICH COULD REPRESENT A PROMINENT PERIVASCULAR SPACE OR REMOTE LACUNAR INFARCTION. JOB NUMBER: [id number] MTDD
--- NOTE | 2018-06-24 19:29 | RADIOLOGY REPORT ---
EXAM: CHEST 2 VIEWS HISTORY: LEFT SHOULDER PAIN AFTER FALL, GENERAL MALAISE AND WEAKNESS. TECHNIQUE: Two views of the chest. COMPARISON: Chest radiograph 02/23/2018. FINDINGS: Implanted right-sided cardiac device appears similar from prior. Mild cardiac silhouette enlargement, as seen previously. Pulmonary vasculature appears noncongested. No focal pulmonary consolidation. No visible pleural fluid collection or pneumothorax. Mid thoracic bridging vertebral body osteophytes. IMPRESSION: 1. NO ACUTE LUNG FINDINGS. 2. MILD CARDIAC SILHOUETTE ENLARGEMENT, SIMILAR FROM COMPARISON. JOB NUMBER: [id number] MTDD
--- NOTE | 2018-06-24 19:32 | RADIOLOGY REPORT ---
EXAM: SHOULDER, LEFT HISTORY: LEFT SHOULDER PAIN FOLLOWING FALL TWO DAYS AGO. TECHNIQUE: Three views of the left shoulder. COMPARISON: None. FINDINGS: Suggestion of soft tissue swelling along the superior aspect of the acromioclavicular joint. No acute fracture is seen. No definite findings to suggest dislocation, although scapular Y-views are not optimally positioned. Mild acromioclavicular joint arthrosis. Minimal calcific densities near the cortical surface of the proximal humerus and greater tuberosity; these could represent reactive enthesophytes or tiny foci of calcific tendinosis. IMPRESSION: ABOVE. JOB NUMBER: [id number] MTDD
== END 2018-06-22 15:27 | disposition home or self-care (01) ==
LOC: ER 11:20
DX: I50.9 Heart failure, unspecified (principal); R53.1 Weakness; R06.02 Shortness of breath; M25.512 Pain in left shoulder; I10 Essential (primary) hypertension; Z79.01 Long term (current) use of anticoagulants
CPT/HCPCS: 70450; 71046; 80053; 81001; 83880; 84436; 84443; 84479; 84484; 85025; 85379; 93005; 93010; 96374; 99284; J1940

== ENCOUNTER 2018-06-24 13:45 | Emergency (ER) | payer BC ==
[2018-06-24 15:13] LABS: BASO % 0.2 % (0-6); GRAN % 69.8 % (47-80); HEMATOCRIT 43.7 % (42.0-52.0); HEMOGLOBIN 14.2 gm/dl (14.0-18.0); LYMPH % 18.6 % (16-45); MEAN CELL VOLUME 95.8 fl (81-97); MEAN CORPUSCULAR HEMOGLOBIN 31.1 pg (27-33); MEAN CORPUSCULAR HGB CONC 32.5 g/dl (32-36); MEAN PLATELET VOLUME 10.9 fl (7.4-10.4); MONO % 10.4 % (0-9); PLATELET COUNT 153 K/uL (130-400); RED BLOOD COUNT 4.56 M/uL (4.40-5.70); RED CELL DISTRIBUTION WIDTH 15.2 % (11.5-14.5); WHITE BLOOD COUNT W/O DIFF 6.1 K/uL (4.2-12.2)
[2018-06-24 15:26] LABS: BLOOD UREA NITROGEN 12 mg/dL (8-23); CREATININE 1.1 mg/dL (0.7-1.2); EST GLOMERULAR FILTRATION RATE > 60 mL/min
[2018-06-24 15:29] LABS: GLUCOSE,RANDOM 146 mg/dL (74-109)
--- NOTE | 2018-06-24 15:37 | Emergency Department Record ---
History of Present Illness - General Chief Complaint: Difficulty Breathing Stated Complaint: REANNA,TAILBONE PAIN Time Seen by Provider: 06/24/18 15:30 Source: Patient Mode of Arrival: Ambulatory - History of Present Illness Initial Comments: patient complaining of sacrum pain and he fell 5 days ago and also SOB and he has a cardiomyopathy with an EF of 15 % viral and follow by Dr. Dickson. Patient has a defibrillator pacer Onset/Timin -: Days(s) Severity: Moderate Severity scale (1-10): 2 Known History Of: Congestive heart failure - Related Data Home Oxygen Therapy: No (Family think he needs it) Previous Rx's Medication Instructions Recorded Acetaminophen [Tylenol 500Mg Tab] 500 mg PO Q6H PRN tablet 12/07/17 Furosemide [Lasix] 40 mg PO DAILY #30 tablet 12/07/17 Potassium Chloride [Klor-Con] 20 meq PO DAILY #30 tablet.sa 12/07/17 Furosemide [Lasix] 20 mg PO DAILY #30 tablet 06/24/18 Allergies Allergy/AdvReac Type Severity Reaction Status Date / Time No Known Drug Allergies Allergy Verified 06/24/18 14:53 Travel Screening - Travel/Exposure Within Last 30 Days Have you traveled within the last 30 days?: No - Travel/Exposure Within Last Year Have you traveled outside the [place] in the last year?: No - Additonal Travel Details Have you been exposed to anyone with a communicable illness?: No - Travel Symptoms Symptom Screening: None Review of Systems Reviewed: No additional complaints except as noted below Constitutional: Reports: As per HPI. Denies: Chills, Fever, Malaise, Night sweats, Weakness, Weight change Eyes: Reports: As per HPI. Denies: Eye discharge, Eye pain, Photophobia, Vision change ENT: Reports: As per HPI. Denies: Congestion, Dental pain, Ear pain, Epistaxis , Hearing loss, Throat pain Respiratory: Reports: As per HPI, Dyspnea. Denies: Cough, Hemoptysis, Stridor, Wheezes Cardiovascular: Reports: As per HPI. Denies: Arrhythmia, Chest pain, Dyspnea on exertion, Edema, Murmurs, Orthopnea, Palpitations, Paroxysmal nocturnal dyspnea, Rheumatic Fever, Syncope Endocrine: Reports: As per HPI. Denies: Fatigue, Heat or cold intolerance, Polydipsia, Polyuria Gastrointestinal: Reports: As per HPI. Denies: Abdominal pain, Constipation, Diarrhea, Hematemesis, Hematochezia, Melena, Nausea, Vomiting Genitourinary: Reports: As per HPI. Denies: Dysuria, Frequency, Hematuria, Incontinence, Retention, Testicular pain, Testicular mass, Urgency Musculoskeletal: Reports: As per HPI. Denies: Arthralgia, Back pain, Gout, Joint swelling, Myalgia, Neck pain Skin: Reports: As per HPI. Denies: Bruising, Change in color, Change in hair/ nails, Lesions, Pruritus, Rash Neurological: Reports: As per HPI. Denies: Abnormal gait, Confusion, Headache, Numbness, Paresthesias, Seizure, Tingling, Tremors, Vertigo, Weakness Psychiatric: Reports: As per HPI. Denies: Anxiety, Auditory hallucinations, Depression, Homicidal thoughts, Suicidal thoughts, Visual hallucinations Hematological/Lymphatic: Reports: As per HPI. Denies: Anemia, Blood Clots, Easy bleeding, Easy bruising, Swollen glands Past Medical History - SOCIAL HISTORY Smoking Status: Never smoker Alcohol Use: None Drug Use: None - RESPIRATORY Hx Respiratory Disorders: Yes Hx Asthma: No Hx Bronchitis: No Hx COPD: No Hx Dyspnea: No Hx Pneumonia: No Hx Pulmonary Embolism: Yes Hx Sleep Apnea: No Hx Tuberculosis: No Hx of CPAP: No - CARDIOVASCULAR Hx Cardio Disorders: Yes Hx Abnormal EKG: Yes Hx Cardiac Cath: No Hx Chest Pain: Yes Hx CHF: Yes Hx Deep Vein Thrombosis: Yes Hx Edema: No Hx Heart Attack: No Hx Hypertension: Yes Hx Hypotension: No Hx Irregular Heartbeat: Yes Hx Palpitations: No Hx Pacemaker/Defib: Yes Hx Vascular Disease: No Comment:: high cholesterol - NEURO Hx Neuro Disorders: No - GI Hx GI Disorders: Yes Hx Abdominal Pain: No Hx Celiac Disease: No Hx Crohn's Disease: No Hx Diverticulitis: No Hx GI Bleed: No Hx Reflux: No Hx Hepatitis/Jaundice: No Hx Hiatal Hernia: No Hx Irritable Bowel: No Hx Liver Disease: No Hx Nausea/Vomiting: No Hx Obstructive Bowel: No Hx Pancreatitis: No Hx Rectal Bleeding: No Hx Ulcer: No Hx Wt Loss/Wt Gain: No Hx of Polyps: Yes - Hx Genitourinary Disorders: No - ENDOCRINE Hx Endocrine Disorders: Yes Hx Diabetes: Yes Hx Thyroid Disease: No - MUSCULOSKELETAL Hx Musculoskeletal Disorders: No - PSYCH Hx Psych Problems: No - HEMATOLOGY/ONCOLOGY Hx Hematology/Oncology Disorders: Yes Hx Anemia: No Hx Blood Disorders: No Hx Bruising: Yes Hx Cancer: Yes (angiosarcoma) Hx Chemotherapy: Yes Hx Radiation Therapy: Yes Hx Clotting Problems: No Hx Sickle Cell Disease: No Hx Unexplained Bleeding: No Hx Blood Transfusions: No Hx Blood Transfusion Reaction: No Family Medical History Any Significant Family History?: Yes Hx Cancer: Mother Hx Heart Disease: Father Physical Exam - General General Appearance: Alert, Oriented x3, Cooperative, No acute distress - Head Head exam: Normal inspection - Eye Eye exam: Normal appearance, PERRL Pupils: Normal accommodation - ENT ENT exam: Normal exam, Mucous membranes moist, Normal external ear exam, Normal orophraynx, TM's normal bilaterally Ear exam: Normal external inspection. negative: External canal tenderness Nasal Exam: Normal inspection. negative: Discharge, Sinus tenderness Mouth exam: Normal external inspection, Tongue normal Teeth exam: Normal inspection. negative: Dental caries Throat exam: Normal inspection. negative: Tonsillar erythema, Tonsillar exudate - Neck Neck exam: Normal inspection, Full ROM. negative: Tenderness - Respiratory Respiratory exam: Normal lung sounds bilaterally. negative: Respiratory distress - Cardiovascular Cardiovascular Exam: Regular rate, Normal rhythm, Normal heart sounds - GI/Abdominal GI/Abdominal exam: Soft, Normal bowel sounds. negative: Tenderness - Rectal Rectal exam: Deferred - exam: Deferred - Extremities Extremities exam: Normal inspection, Full ROM, Normal capillary refill. negative: Tenderness - Back Back exam: Reports: Normal inspection, Full ROM. Denies: Muscle spasm, Rash noted, Tenderness - Neurological Neurological exam: Alert, Normal gait, Oriented X3, Reflexes normal - Psychiatric Psychiatric exam: Normal affect, Normal mood - Skin Skin exam: Dry, Intact, Normal color, Warm Course Vital Signs 06/24/18 14:34 Temperature 97.5 F L Pulse Rate [ 73 Left] Respiratory 16 Rate Blood Pressure 84/66 [Left Arm] Pulse Ox 98 - Reevaluation(s) Reevaluation #1: feeling better 06/24/18 17:44 Medical Decision Making - Data Complexity MDM Data: Labs Ordered and/or Reviewed (trop t neg), X-Ray Ordered and/or Reviewed (no infiltrate in chest cardiomegaly), EKG Ordered and/or Reviewed ( EKG paced and same as previous EKG) - Lab Data Result diagrams: 06/24/18 15:02 06/24/18 15:02 Lab Results 06/24/18 06/24/18 Range/Units 15:02 15:02 WBC 6.1 (4.2-12.2) K/uL RBC 4.56 (4.40-5.70) M/uL Hgb 14.2 (14.0-18.0) gm/dl Hct 43.7 (42.0-52.0) % MCV 95.8 (81-97) fl MCH 31.1 (27-33) pg MCHC 32.5 (32-36) g/dl RDW 15.2 H (11.5-14.5) % Plt Count 153 (130-400) K/uL MPV 10.9 H (7.4-10.4) fl Gran % 69.8 (47-80) % Lymphocytes % 18.6 (16-45) % Monocytes % 10.4 H (0-9) % Eosinophils % 1.0 (0-6) % Basophils % 0.2 (0-6) % Sodium 138 (136-145) mmol/L Potassium 4.6 H (3.4-4.5) mmol/L Chloride 100 (98-107) mmol/L Carbon Dioxide 25.0 (22-29) mmol/L Anion Gap 13.0 (7-16) BUN 12 (8-23) mg/dL Creatinine 1.1 (0.7-1.2) mg/dL Estimated GFR > 60 mL/min Random Glucose 146 H (74-109) mg/dL Calcium 8.9 (8.8-10.2) mg/dL Disposition Clinical Impression: Dehydration Fractured coccyx Qualifiers: Encounter type: initial encounter Fracture type: closed Qualified Code(s): S32.2XXA - Fracture of coccyx, initial encounter for closed fracture CHF (congestive heart failure) Qualifiers: Heart failure type: systolic Heart failure chronicity: chronic Qualified Code(s ): I50.22 - Chronic systolic (congestive) heart failure Disposition: Home, Self-Care Condition: (1) Good Instructions: Dehydration (ED) Additional Instructions: use a donut pillow tylenol for pain decrease lasix to 20 mg per day advil two pills every 6 hours Prescriptions: Furosemide [Lasix] 20 mg PO DAILY #30 tablet Forms: Patient Portal Access Time of Disposition: :44 Quality - Quality Measures Quality Measures: N/A - Blood Pressure Screening Does Patient Have Any of the Following: No Blood Pressure Classification: Normal BP Reading Systolic Measurement: 106 Diastolic Measurement: 76 Screening for High Blood Pressure: < Normal BP, F/U Not Required > [G8783]
--- NOTE | 2018-06-26 06:52 | RADIOLOGY REPORT ---
EXAM: SACRUM AND COCCYX HISTORY: PAIN STATUS POST FALL. TECHNIQUE: Two views of the sacrum and coccyx were obtained. FINDINGS: There is acute angulation at the lower coccygeal segment which could represent an acute fracture. The sacrum is intact. The pubic rami are unremarkable. IMPRESSION: POSSIBLE ACUTE COCCYGEAL INJURY. JOB NUMBER: [id number] MTDD
--- NOTE | 2018-06-26 06:54 | RADIOLOGY REPORT ---
EXAM: CHEST, TWO VIEWS HISTORY: DIFFICULTY IN BREATHING. TECHNIQUE: Two views of the chest were obtained. FINDINGS: A right subclavian pacer is in good position. There is moderate cardiomegaly without vascular distention. No infiltrate or effusion is seen. There is no evidence of parenchymal mass. IMPRESSION: CARDIOMEGALY WITHOUT AN ACUTE INTRATHORACIC PROCESS. THE HEART APPEARS MODERATELY ENLARGED COMPARED TO 09/19/05, BUT STABLE WHEN COMPARED TO 02/23/18. JOB NUMBER: [id number] [facility]
== END 2018-06-24 18:24 | disposition home or self-care (01) ==
LOC: ER 13:45
DX: S32.2XXA Fracture of coccyx, initial encounter for closed fracture (principal); R06.02 Shortness of breath; R06.00 Dyspnea, unspecified; E86.0 Dehydration; I50.22 Chronic systolic (congestive) heart failure; I42.9 Cardiomyopathy, unspecified; I10 Essential (primary) hypertension; I25.2 Old myocardial infarction; E11.9 Type 2 diabetes mellitus without complications; Z95.810 Presence of automatic (implantable) cardiac defibrillator
CPT/HCPCS: 71046; 72220; 80048; 83880; 84484; 85025; 93005; 93010; 99284

== ENCOUNTER 2018-07-14 18:06 | Inpatient (IN) | payer BC ==
[2018-07-14] MEDS ORDERED: FUROSEMIDE IV 40MG/4ML VIAL IVP ONE (18:19)
--- NOTE | 2018-07-14 18:22 | Emergency Department Record ---
History of Present Illness - General Chief complaint: Weakness Stated complaint: WEAKNESS/SWELLING Time Seen by Provider: 07/14/18 18:11 Source: Patient Mode of Arrival: Wheelchair Limitations: No limitations - History of Present Illness Initial comments: 68 yo male presents to ED for evaluation of increased lower extremity edema and generalized weakness symptoms over the past several days. Patient reports that his Lasix was recently reduced in half 6 days ago, reports history of CHF, Atrial Fibrillation, and AICD placement. Patient denies fevers, chills, cough, or recent illness symptoms. MD Complaint: Generalized weakness Onset/Timin -: Days(s) Location: Generalized Severity: Moderate Consistency: Constant Improves with: Rest Worsens with: Exertion Context: New medication Associated Symptoms: Other - [place] Coma Scale Eye Response: (4) Open spontaneously Motor Response: (6) Obeys commands Verbal Response: (5) Oriented [place] Total: 15 - Related Data Previous Rx's Medication Instructions Recorded Acetaminophen [Tylenol 500Mg Tab] 500 mg PO Q6H PRN tablet 12/07/17 Potassium Chloride [Klor-Con] 20 meq PO DAILY #30 tablet.sa 12/07/17 Furosemide [Lasix] 20 mg PO DAILY #30 tablet 06/24/18 Allergies Allergy/AdvReac Type Severity Reaction Status Date / Time No Known Drug Allergies Allergy Verified 06/24/18 14:53 Review of Systems Constitutional: Reports: Weakness. Denies: Chills, Fever, Malaise, Night sweats Eyes: Denies: Eye discharge, Eye pain ENT: Denies: Congestion, Ear pain, Epistaxis Respiratory: Denies: Cough, Dyspnea Cardiovascular: Reports: Dyspnea on exertion, Edema. Denies: Chest pain Endocrine: Denies: Fatigue, Heat or cold intolerance Gastrointestinal: Denies: Abdominal pain, Nausea, Vomiting Genitourinary: Denies: Incontinence, Retention Musculoskeletal: Denies: Arthralgia, Back pain Skin: Denies: Bruising, Change in color Neurological: Denies: Abnormal gait, Confusion, Headache, Tingling, Tremors Psychiatric: Denies: Anxiety Hematological/Lymphatic: Denies: Anemia, Blood Clots Past Medical History - SOCIAL HISTORY Smoking Status: Never smoker Drug Use: None - RESPIRATORY Hx Respiratory Disorders: Yes Hx Asthma: No Hx Bronchitis: No Hx COPD: No Hx Dyspnea: No Hx Pneumonia: No Hx Pulmonary Embolism: Yes Hx Sleep Apnea: No Hx Tuberculosis: No Hx of CPAP: No - CARDIOVASCULAR Hx Cardio Disorders: Yes Hx Abnormal EKG: Yes Hx Cardiac Cath: No Hx Chest Pain: Yes Hx CHF: Yes Hx Deep Vein Thrombosis: Yes Hx Edema: No Hx Heart Attack: No Hx Hypertension: Yes Hx Hypotension: No Hx Irregular Heartbeat: Yes Hx Palpitations: No Hx Pacemaker/Defib: Yes Hx Vascular Disease: No Comment:: high cholesterol - NEURO Hx Neuro Disorders: No - GI Hx GI Disorders: Yes Hx Abdominal Pain: No Hx Celiac Disease: No Hx Crohn's Disease: No Hx Diverticulitis: No Hx GI Bleed: No Hx Reflux: No Hx Hepatitis/Jaundice: No Hx Hiatal Hernia: No Hx Irritable Bowel: No Hx Liver Disease: No Hx Nausea/Vomiting: No Hx Obstructive Bowel: No Hx Pancreatitis: No Hx Rectal Bleeding: No Hx Ulcer: No Hx Wt Loss/Wt Gain: No Hx of Polyps: Yes - Hx Genitourinary Disorders: No - ENDOCRINE Hx Endocrine Disorders: Yes Hx Diabetes: Yes Hx Thyroid Disease: No - MUSCULOSKELETAL Hx Musculoskeletal Disorders: No - PSYCH Hx Psych Problems: No - HEMATOLOGY/ONCOLOGY Hx Hematology/Oncology Disorders: Yes Hx Anemia: No Hx Blood Disorders: No Hx Bruising: Yes Hx Cancer: Yes (angiosarcoma) Hx Chemotherapy: Yes Hx Radiation Therapy: Yes Hx Clotting Problems: No Hx Sickle Cell Disease: No Hx Unexplained Bleeding: No Hx Blood Transfusions: No Hx Blood Transfusion Reaction: No Family Medical History Hx Cancer: Mother Hx Heart Disease: Father Physical Exam - General General Appearance: Alert, Oriented x3, Cooperative, Mild distress Limitations: No limitations - Head Head exam: Atraumatic, Normocephalic, Normal inspection Head exam detail: negative: Abrasion, Contusion, Ozuna's sign, General tenderness, Hematoma, Laceration - Eye Eye exam: Normal appearance. negative: Conjunctival injection, Periorbital swelling, Periorbital tenderness, Scleral icterus - ENT Ear exam: negative: Auricular hematoma, Auricular trauma Nasal Exam: negative: Active bleeding, Discharge, Dried blood, Foreign body Mouth exam: negative: Drooling, Laceration, Muffled voice, Tongue elevation - Neck Neck exam: Normal inspection. negative: Meningismus, Tenderness - Respiratory Respiratory exam: Normal lung sounds bilaterally. negative: Respiratory distress, Rhonchi, Stridor, Wheezes - Cardiovascular Cardiovascular Exam: Irregular rhythm - GI/Abdominal GI/Abdominal exam: Soft. negative: Rebound, Rigid, Tenderness - Rectal Rectal exam: Deferred - exam: Deferred - Extremities Extremities exam: Pedal edema (3+ edema bilaterally). negative: Calf tenderness , Tenderness - Back Back exam: Denies: CVA tenderness (R), CVA tenderness (L) - Neurological Neurological exam: Alert, Oriented X3. negative: Motor sensory deficit - Psychiatric Psychiatric exam: Normal affect, Normal mood - Skin Skin exam: Normal color. negative: Abrasion Type of lesion: negative: abrasion Course - Reevaluation(s) Reevaluation #1: 07/14/18 18:36 EKG: Atrial flutter/fibrillation LBBB Demand paced rhythm Reevaluation #2: 07/14/18 18:56 Laboratory studies were reviewed: BNP 44902, previous [id number]. Troponin appears negative. Will admit for CHF/Fluid overload. Reevaluation #3: 07/14/18 19:08 Case was discussed with Clarita Kelly, will admit for diuresis. Reevaluation #4: 07/14/18 19:49 CXR: Cardiomegaly Small pleural effusion No acute process Medical Decision Making - Lab Data Result diagrams: 07/14/18 18:20 07/14/18 18:20 Disposition Disposition: Admit Clinical Impression: CHF (congestive heart failure) Qualifiers: Heart failure type: unspecified Heart failure chronicity: acute on chronic Qualified Code(s): I50.9 - Heart failure, unspecified Disposition: Still a Patient at [facility] Decision to Admit: Admit from ER Decision to Admit Date: 07/14/18 Decision to Admit Time: 19:09 Condition: (2) Stable Time of Disposition: 19:09 Quality - Quality Measures Quality Measures: N/A - Blood Pressure Screening Does Patient Have Any of the Following: Active Dx of HTN Blood Pressure Classification: Normal BP Reading Systolic Measurement: 83 Diastolic Measurement: 61 Screening for High Blood Pressure: Patient Exclusion, Hx of HTN [G9744]
[2018-07-14 18:27] LABS: BASO % 0.7 % (0-6); EOS % 2.2 % (0-6); HEMOGLOBIN 16.4 gm/dl (14.0-18.0); LYMPH % 24.9 % (16-45); MEAN CELL VOLUME 97.6 fl (81-97); MEAN CORPUSCULAR HEMOGLOBIN 30.8 pg (27-33); MEAN CORPUSCULAR HGB CONC 31.5 g/dl (32-36); MEAN PLATELET VOLUME 10.6 fl (7.4-10.4); MONO % 12.2 % (0-9); PLATELET COUNT 196 K/uL (130-400); RED BLOOD COUNT 5.33 M/uL (4.40-5.70); RED CELL DISTRIBUTION WIDTH 15.1 % (11.5-14.5); WHITE BLOOD COUNT W/O DIFF 5.5 K/uL (4.2-12.2)
[2018-07-14 18:41] LABS: BLOOD UREA NITROGEN 19 mg/dL (8-23); CREATININE 1.2 mg/dL (0.7-1.2); EST GLOMERULAR FILTRATION RATE > 60 mL/min
[2018-07-14 18:44] LABS: GLUCOSE,RANDOM 107 mg/dL (74-109)
[2018-07-14 18:46] LABS: ALT/SGPT 21 U/L (<41); AST/SGOT 28 U/L (10.0-50.0)
[2018-07-14 18:47] LABS: ALB/GLOB RATIO 1.1 (1.1-1.8); ALBUMIN 4.2 g/dL (4.0-5.0); ALKALINE PHOSPHATASE 145 U/L (55-149)
[2018-07-14] MEDS ORDERED: ACETAMINOPHEN 500 MG TABLET PO PRN (19:52)
[2018-07-14] MEDS ORDERED: PNEUM 23-VAL ADULT IM ONE (20:55)
[2018-07-14] MEDS: CARVEDILOL 12.5 MG TABLET PO SCH (21:15)
[2018-07-14] MEDS: METFORMIN 500 MG TABLET PO SCH (21:58)
[2018-07-14] MEDS: APIXABAN 5MG TABLET PO SCH (21:58)
[2018-07-14] MEDS: SIMVASTATIN 20 MG TABLET PO SCH (21:58)
[2018-07-14] MEDS ORDERED: VALSARTAN PO SCH (22:00)
[2018-07-14] MEDS ORDERED: SACUBITRIL PO SCH (22:00)
[2018-07-14] MEDS: ENTRESTO MC SCH (22:02)
[2018-07-14] MEDS: SACUBITRIL MC SCH (22:02)
[2018-07-14] MEDS: VALSARTAN MC SCH (22:02)
[2018-07-15] MEDS: ONDANSETRON 4 MG ODT TABLET SL PRN ×3 (00:37→21:15)
[2018-07-15] MEDS: CARVEDILOL 12.5 MG TABLET PO SCH ×2 (09:39→21:18)
[2018-07-15] MEDS: METFORMIN 500 MG TABLET PO SCH ×2 (09:39→21:16)
[2018-07-15] MEDS: APIXABAN 5MG TABLET PO SCH ×2 (09:40→21:16)
[2018-07-15] MEDS: POTASSIUM CHLORIDE 20 MEQ TABLET PO SCH (09:40)
[2018-07-15] MEDS: VALSARTAN MC SCH (09:46)
[2018-07-15] MEDS: SACUBITRIL MC SCH (09:46)
[2018-07-15] MEDS: ENTRESTO MC SCH (09:46)
[2018-07-15] MEDS ORDERED: LISINOPRIL 40 MG PO SCH (10:00)
[2018-07-15] MEDS ORDERED: LISINOPRIL 20 MG TABLET PO SCH (10:00)
[2018-07-15] MEDS ORDERED: FUROSEMIDE IV 40MG/4ML VIAL IVP ONE (11:13)
[2018-07-15 11:19] LABS: BLOOD UREA NITROGEN 19 mg/dL (8-23); CREATININE 1.1 mg/dL (0.7-1.2); EST GLOMERULAR FILTRATION RATE > 60 mL/min
[2018-07-15 11:22] LABS: GLUCOSE,RANDOM 107 mg/dL (74-109)
[2018-07-15] MEDS: ACETAMINOPHEN 500 MG TABLET PO PRN ×2 (11:23→21:15)
--- NOTE | 2018-07-15 11:31 | History & Physical ---
History of Present Illness - Date of Service Date of Service for History & Physical: 07/15/18 - History of Present Illness Admitting Diagnosis: Acute decompsenated CHF. Atrial Fibrillation History of Present Illness: 68 yo male admitted for CHF exacerbation. Recently had Lasix decreased from 40mg PO to 20mg PO r/t weakness and feeling dehydrated. PMH Viral cardiomyopathy (2004), PPM/ICD staph infection (left chest), Afib, DM, "Angiosarcoma" req chemo/radiation, and currently gallbladder disease (oupt surgical consult previously scheduled 07/16/18 with Marquze). Pt is inconsistent with reporting home fluid restriction but states 48oz ordered by [facility]. 07/14/18 Pt presented to ER for recent onset of BLE pitting edema and continued generalized weakness. CXR reports cardiomegaly but no noted infiltrates or pulmonary edema. +3 pitting edema BLE, BNP 12,148 BP 106/91, HR 83, RR 20, 100% RA, 97.3F WBC 5.5, Hgb 16.4, Hct 52, Plt 196 Na 140, K 5.2, Cl 101, CO2 24, Anion gap 15, BUn 19, Cr 1.2, GFR>60, glucose 107 , LFTs wnl Trop <0.010, Admit for CHF exacerbation and fluid overload Given 40mg IV lasix in ER 07/15/18 Pt resting in bed, do distress noted. 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 +2 pitting BLE edema noted, but +3 PT/DPs noted. Skin pwd. Abnormal heart sounds noted (s3), PPM/ICD noted right chest. Repeat EKG shows paced rhythm (repeated r /t appearance of changes on tele, EKG does not reveal acute process). Pt denies CP or REANNA but continues to report weakness that has been an issues for more than 1 week. States he is "due" for ECHO and was told to complete this outpt by [facility], no known h/o right heart cath per pt. Pt also reporting fabi lower leg pain/ heaviness for "sometime", arterial lower ext US ordered for c/o claudication. Trop x3 negative. POC- Lasix 40mg IVP BID, monitor BMP, mag, BNP, 1500cc fluid restriction, daily wgts. Cardilogy consult and ECHO ordered. Pt to see Deppen for surgical consult (gallbladder issues previous to admission). Continous tele monitoring. PCP Jennie Dickson ([facility]), Marquez (surgical) Travel Screening - Travel/Exposure Within Last 30 Days Have you traveled within the last 30 days?: No - Travel/Exposure Within Last Year Have you traveled outside the [place] in the last year?: No - Additonal Travel Details Have you been exposed to anyone with a communicable illness?: Yes Exposure Details:: daughter ill with diarrhea - Travel Symptoms Symptom Screening: None Review of Systems Constitutional: Reports: Weakness. Denies: Chills, Fever, Malaise, Night sweats Eyes: Denies: Eye discharge, Eye pain ENT: Denies: Congestion, Ear pain, Epistaxis Respiratory: Denies: Cough, Dyspnea Cardiovascular: Reports: Dyspnea on exertion, Edema. Denies: Chest pain Endocrine: Denies: Fatigue, Heat or cold intolerance Gastrointestinal: Denies: Abdominal pain, Nausea, Vomiting Genitourinary: Denies: Incontinence, Retention Musculoskeletal: Denies: Arthralgia, Back pain Skin: Denies: Bruising, Change in color Neurological: Denies: Abnormal gait, Confusion, Headache, Tingling, Tremors Psychiatric: Denies: Anxiety Hematological/Lymphatic: Denies: Anemia, Blood Clots Past Medical History - SOCIAL HISTORY Smoking Status: Never smoker - RESPIRATORY Hx Respiratory Disorders: Yes Hx Asthma: No Hx Bronchitis: No Hx COPD: No Hx Dyspnea: No Hx Pneumonia: No Hx Pulmonary Embolism: Yes Hx Sleep Apnea: No Hx Tuberculosis: No - CARDIOVASCULAR Hx Cardio Disorders: Yes Hx Abnormal EKG: Yes Hx Cardiac Cath: No Hx Chest Pain: Yes Hx CHF: Yes Hx Deep Vein Thrombosis: Yes Hx Edema: No Hx Heart Attack: No Hx Hypertension: Yes Hx Hypotension: No Hx Irregular Heartbeat: Yes Hx Palpitations: No Hx Pacemaker/Defib: Yes Hx Vascular Disease: No Comment:: high cholesterol - NEURO Hx Neuro Disorders: No - GI Hx GI Disorders: Yes Hx Abdominal Pain: No Hx Celiac Disease: No Hx Crohn's Disease: No Hx Diverticulitis: No Hx GI Bleed: No Hx Reflux: No Hx Hepatitis/Jaundice: No Hx Hiatal Hernia: No Hx Irritable Bowel: No Hx Liver Disease: No Hx Nausea/Vomiting: No Hx Obstructive Bowel: No Hx Pancreatitis: No Hx Rectal Bleeding: No Hx Ulcer: No Hx Wt Loss/Wt Gain: No - Hx Genitourinary Disorders: No - ENDOCRINE Hx Endocrine Disorders: Yes Hx Diabetes: Yes Hx Thyroid Disease: No - MUSCULOSKELETAL Hx Musculoskeletal Disorders: No - PSYCH Hx Psych Problems: No - HEMATOLOGY/ONCOLOGY Hx Hematology/Oncology Disorders: Yes Hx Anemia: No Hx Blood Disorders: No Hx Bruising: Yes Hx Cancer: Yes (angiosarcoma) Hx Chemotherapy: Yes Hx Radiation Therapy: Yes Hx Clotting Problems: No Hx Sickle Cell Disease: No Hx Unexplained Bleeding: No Hx Blood Transfusions: No Hx Blood Transfusion Reaction: No Family Medical History Hx Cancer: Mother Hx Heart Disease: Father H&P Meds/Allergies - Allergies Allergies: Allergies Allergy/AdvReac Type Severity Reaction Status Date / Time No Known Drug Allergies Allergy Verified 06/24/18 14:53 - Home Medications Previous Rx's Medication Instructions Recorded Acetaminophen [Tylenol 500Mg Tab] 500 mg PO Q6H PRN tablet 12/07/17 Potassium Chloride [Klor-Con] 20 meq PO DAILY #30 tablet.sa 12/07/17 Furosemide [Lasix] 20 mg PO DAILY #30 tablet 06/24/18 - Active Medications Active Medications: Current Medications Acetaminophen (Tylenol 500mg Tab) 500 mg PO Q6H PRN PRN Reason: PAIN - MILD(1-4)/FEVER Last Admin: 07/15/18 02:58 Dose: 500 mg Apixaban (Eliquis) 5 mg PO BID [facility] Last Admin: 07/15/18 09:40 Dose: 5 mg Carvedilol (Coreg) 25 mg PO BID [facility] Last Admin: 07/15/18 09:39 Dose: 25 mg Furosemide (Lasix Iv) 40 mg IVP BIDDIUR [facility] Metformin HCl (Glucophage Ir) 500 mg PO BID [facility] Last Admin: 07/15/18 09:39 Dose: 500 mg Ondansetron HCl (Zofran Odt) 4 mg SL Q6H PRN PRN Reason: NAUSEA/VOMITING Last Admin: 07/15/18 08:43 Dose: 4 mg Patient Own Medication () 1 each MC BID [facility] Potassium Chloride (Klor-Con) 20 meq PO DAILY [facility] Last Admin: 07/15/18 09:40 Dose: 20 meq Simvastatin (Zocor) 40 mg PO QHS [facility] Last Admin: 07/14/18 21:58 Dose: 40 mg Physical Exam - Vital Signs Vital Signs: Vital Signs - Last 24 Hrs Temp Pulse Resp BP BP BP Pulse Ox 07/15/18 09:50 98.6 F 74 16 118/86 95 07/15/18 08:44 98.1 F 113/79 07/15/18 06:00 98.1 F 70 17 113/79 93 L 07/15/18 02:00 97.5 F L 49 L 16 101/73 96 07/14/18 22:00 97.6 F 62 17 92/60 94 L 07/14/18 21:00 68 17 07/14/18 19:52 97.5 F L 68 17 83/61 98 07/14/18 19:45 77 24 91/76 98 07/14/18 19:29 87/67 98 07/14/18 19:18 81 16 80/45 96 07/14/18 18:40 76 20 92/64 99 07/14/18 18:11 97.3 F L 83 20 106/91 100 - General General Appearance: Alert, Oriented x3, Cooperative Limitations: No limitations - Head Head exam: Atraumatic, Normocephalic, Normal inspection Head exam detail: negative: Abrasion, Contusion, Ozuna's sign, General tenderness, Hematoma, Laceration - Eye Eye exam: Normal appearance. negative: Conjunctival injection, Periorbital swelling, Periorbital tenderness, Scleral icterus - ENT ENT exam: Normal exam Ear exam: negative: Auricular hematoma, Auricular trauma Nasal Exam: negative: Active bleeding, Discharge, Dried blood, Foreign body Mouth exam: Normal external inspection. negative: Drooling, Laceration, Muffled voice, Tongue elevation - Neck Neck exam: Normal inspection. negative: Meningismus, Tenderness - Respiratory Respiratory exam: Normal lung sounds bilaterally. negative: Respiratory distress, Rhonchi, Stridor, Wheezes - Cardiovascular Cardiovascular Exam: Irregular rhythm, JVD, S3 Peripheral Pulses: 3+: Radial (R), Radial (L), Dorsalis Pedis (R), Dorsalis Pedis (L) - GI/Abdominal GI/Abdominal exam: Soft, Distended. negative: Rebound, Rigid, Tenderness - Rectal Rectal exam: Deferred - exam: Deferred - Extremities Extremities exam: Pedal edema (2+ edema bilaterally). negative: Calf tenderness , Tenderness - Back Back exam: Denies: CVA tenderness (R), CVA tenderness (L) - Neurological Neurological exam: Alert, Oriented X3. negative: Motor sensory deficit - Psychiatric Psychiatric exam: Normal affect, Normal mood - Skin Skin exam: Normal color. negative: Abrasion Type of lesion: negative: abrasion Results - Labs Result Diagrams: 07/14/18 18:20 07/14/18 18:20 Labs Last 24 Hours: Laboratory Results - last 24 hr 07/14/18 07/14/18 07/15/18 18:20 18:20 02:04 WBC 5.5 RBC 5.33 Hgb 16.4 Hct 52.0 MCV 97.6 H MCH 30.8 MCHC 31.5 L RDW 15.1 H Plt Count 196 MPV 10.6 H Gran % 60.0 Lymphocytes % 24.9 Monocytes % 12.2 H Eosinophils % 2.2 Basophils % 0.7 Sodium 140 Potassium 5.2 H Chloride 101 Carbon Dioxide 24.0 Anion Gap 15.0 BUN 19 Creatinine 1.2 Estimated GFR > 60 Random Glucose 107 Calcium 9.6 Total Bilirubin 1.20 H AST 28 ALT 21 Alkaline Phosphatase 145 Troponin T < 0.010 < 0.010 NT-Pro-B Natriuret Pep 05535.00 H Total Protein 8.0 Albumin 4.2 Globulin 3.8 Albumin/Globulin Ratio 1.1 07/15/18 10:18 WBC RBC Hgb Hct MCV MCH MCHC RDW Plt Count MPV Gran % Lymphocytes % Monocytes % Eosinophils % Basophils % Sodium Potassium Chloride Carbon Dioxide Anion Gap BUN Creatinine Estimated GFR Random Glucose Calcium Total Bilirubin AST ALT Alkaline Phosphatase Troponin T < 0.010 NT-Pro-B Natriuret Pep Total Protein Albumin Globulin Albumin/Globulin Ratio - Imaging and Cardiology Chest x-ray Status: Pending (audio clip reviewed) VTE H&P Assessment - Risk for VTE Risk for VTE: Yes Risk Level: High Risk Assessment Date: 07/15/18 Risk Assessment Time: 11:32 VTE Orders Placed or Will Be Placed: Yes Plan - Inpatient Certification Inpatient Certification: Admit to inpatient care: Based on my medical assessment, after consideration of patient's risk factors (age, co-morbidities and patient presenting symptoms and acuity), I expect that this patient will remain in the hospital greater than or equal to two midnights and that the services needed warrant inpatient care because: Patient Risk Factors: pulmonary edema, electrolyte imbalance, dysrhythmia, fall r/t weakness Estimated length of stay: The patient may reasonably be expected to be discharged or transferred to a hospital within 96 hours after admission to [facility]. Services needed: cardiac monitoring, IV diuretics, electrolyte monitoring/mgt, cardiology consult, ECHO, PT/OT eval and treatment Post hospital care (if known): I certify that my determination is in accordance with my understanding of Medicare requirements for reasonable and necessary inpatient services. 07/15/18 11:32 - Detailed Diagnosis and Plan (1) CHF (congestive heart failure) Current Visit: Yes Status: Acute Qualifiers: Heart failure type: unspecified Heart failure chronicity: acute on chronic Qualified Code(s): I50.9 - Heart failure, unspecified Base Code: I50.9 - HEART FAILURE, UNSPECIFIED Comment: 07/15/18 -BNP 12,148 -IV Lasix 40mg BID, K and Mag monitoring (supp if needed) -tele, card consult, echo -daily wgt, I/O, fluid restriction (2) Weakness Current Visit: No Status: Acute Base Code: R53.1 - WEAKNESS Comment: -up with assistance -PT OT eval/tx ordered -arterial doppler BLE pending r/t claudication (3) DVT prophylaxis Current Visit: Yes Status: Acute Base Code: [id number] - Comment: 07/15/18 -pt on Eliquis 5mg BID (4) Full code status Current Visit: Yes Status: Acute Base Code: Z78.9 - OTHER SPECIFIED HEALTH STATUS Comment: 07/15/18 -full code
[2018-07-15] MEDS: FUROSEMIDE IV 40MG/4ML VIAL IVP SCH (17:15)
--- NOTE | 2018-07-15 20:41 | RADIOLOGY REPORT ---
EXAM: CHEST 2 VIEWS HISTORY: WEAKNESS, DIFFICULTY BREATHING, AND BILATERAL LOWER EXTREMITY EDEMA. TECHNIQUE: AP and lateral upright views of the chest were obtained. COMPARISON: 06/24/2018. FINDINGS: An ICD is in place. The heart is enlarged but stable. There is no appreciable pulmonary vascular congestion or acute pulmonary infiltrate. There are small bilateral pleural effusions with blunting of the posterior costophrenic angles. There is no pneumothorax. Stable calcified granulomas are present bilaterally. Degenerative changes are present within the spine. IMPRESSION: 1. SMALL BILATERAL PLEURAL EFFUSIONS. 2. CARDIOMEGALY WITHOUT VASCULAR CONGESTION. JOB NUMBER: [id number] [facility]
[2018-07-15] MEDS ORDERED: DIPHENHYDRAMINE HCL 25 MG CAPSULE PO PRN (21:12)
[2018-07-15] MEDS: SIMVASTATIN 20 MG TABLET PO SCH (21:17)
[2018-07-16 06:59] LABS: BLOOD UREA NITROGEN 20 mg/dL (8-23); CREATININE 1.2 mg/dL (0.7-1.2); EST GLOMERULAR FILTRATION RATE > 60 mL/min; GLUCOSE,RANDOM 88 mg/dL (74-109)
[2018-07-16] MEDS: ACETAMINOPHEN 500 MG TABLET PO PRN (08:43)
[2018-07-16] MEDS: ONDANSETRON 4 MG ODT TABLET SL PRN (08:44)
[2018-07-16] MEDS: FUROSEMIDE IV 40MG/4ML VIAL IVP SCH ×2 (10:45→18:59)
[2018-07-16] MEDS: CARVEDILOL 12.5 MG TABLET PO SCH ×2 (10:46→21:31)
[2018-07-16] MEDS: METFORMIN 500 MG TABLET PO SCH ×2 (10:46→21:31)
[2018-07-16] MEDS: APIXABAN 5MG TABLET PO SCH ×2 (10:46→21:32)
[2018-07-16] MEDS: POTASSIUM CHLORIDE 20 MEQ TABLET PO SCH (10:46)
--- NOTE | 2018-07-16 13:09 | US ARTERIAL DOPPLER REPORT ---
EXAM: ARTERIAL DOPPLER OF THE BILATERAL LOWER EXTREMITIES HISTORY: CLAUDICATION. TECHNIQUE: Sonographic evaluation of the arterial system of the bilateral lower extremities was performed with the addition of Doppler and spectral analysis. Images were obtained with the vascular probe oriented 60 degrees. FINDINGS: 3 Right Waveform Left Waveform Common Femoral Artery 47 cm/s Triphasic 40 cm/s Triphasic Profunda Femoral Artery 34 cm/s Biphasic 29 cm/s Monophasic Proximal Superficial Femoral Artery 39 cm/s Triphasic 37 cm/s Triphasic Mid Superficial Femoral Artery 51 cm/s Triphasic 34 cm/s Triphasic Distal Superficial Femoral Artery 46 cm/s Triphasic 50 cm/s Triphasic Popliteal Artery 25 cm/s Biphasic 29 cm/s Triphasic Anterior Tibial Artery 32 cm/s Triphasic 46 cm/s Triphasic Posterior Tibial Artery 31 cm/s Biphasic 13 cm/s Biphasic Peroneal Artery 14 cm/s Biphasic 47 cm/s Triphasic Dorsalis Pedis Artery 23 cm/s Triphasic 40 cm/s Triphasic The right FELICIA is 1.3 which is within normal limits. The left FELICIA is 1.4. IMPRESSION: NO HEMODYNAMICALLY SIGNIFICANT STENOSIS IS APPRECIATED. JOB NUMBER: [id number] [facility]
--- NOTE | 2018-07-16 13:51 | Physician Progress Note ---
Subjective - Date Date of Physician Progress Note: 07/16/18 Objective - Vital Signs Vital Signs: Vital Signs - Last 24 Hrs Temp Pulse Pulse Resp BP Pulse Ox 07/16/18 06:00 97.4 F L 64 16 109/74 98 07/16/18 04:30 64 99 07/16/18 02:00 97.5 F L 65 16 103/75 94 L 07/15/18 21:58 97.7 F 74 17 95/69 96 07/15/18 21:00 16 07/15/18 14:00 98.1 F 65 20 84/60 97 - General General Appearance: Alert, Oriented x3, Cooperative Limitations: No limitations - Head Head exam: Atraumatic, Normocephalic, Normal inspection Head exam detail: negative: Abrasion, Contusion, Ozuna's sign, General tenderness, Hematoma, Laceration - Eye Eye exam: Normal appearance. negative: Conjunctival injection, Periorbital swelling, Periorbital tenderness, Scleral icterus - ENT ENT exam: Normal exam Ear exam: negative: Auricular hematoma, Auricular trauma Nasal Exam: negative: Active bleeding, Discharge, Dried blood, Foreign body Mouth exam: Normal external inspection. negative: Drooling, Laceration, Muffled voice, Tongue elevation - Neck Neck exam: Normal inspection. negative: Meningismus, Tenderness - Respiratory Respiratory exam: Normal lung sounds bilaterally. negative: Respiratory distress, Rhonchi, Stridor, Wheezes - Cardiovascular Cardiovascular Exam: Irregular rhythm, JVD, S3 Peripheral Pulses: 3+: Radial (R), Radial (L), Dorsalis Pedis (R), Dorsalis Pedis (L) - GI/Abdominal GI/Abdominal exam: Soft, Distended. negative: Rebound, Rigid, Tenderness - Rectal Rectal exam: Deferred - exam: Deferred - Extremities Extremities exam: Pedal edema (2+ edema bilaterally). negative: Calf tenderness , Tenderness - Back Back exam: Denies: CVA tenderness (R), CVA tenderness (L) - Neurological Neurological exam: Alert, Oriented X3. negative: Motor sensory deficit - Psychiatric Psychiatric exam: Normal affect, Normal mood - Skin Skin exam: Normal color. negative: Abrasion Type of lesion: negative: abrasion Assessment and Plan - Assessment and Plan (1) CHF (congestive heart failure) Current Visit: Yes Status: Acute Qualifiers: Heart failure type: unspecified Heart failure chronicity: acute on chronic Qualified Code(s): I50.9 - Heart failure, unspecified Base Code: I50.9 - HEART FAILURE, UNSPECIFIED Comment: 07/15/18 -BNP 12,148 -IV Lasix 40mg BID, K and Mag monitoring (supp if needed) -tele, card consult, echo -daily wgt, I/O, fluid restriction 07/16/18 -ECHO completed today, EF 15% ([facility] contacted and recent ECHO 08/01/17 EF 17%) -awaiting call back from [facility] for d/c or transfer to [facility] -pt in no distress, PT eval today for weakness -electrolytes normal (2) Weakness Current Visit: No Status: Acute Base Code: R53.1 - WEAKNESS Comment: -up with assistance -PT OT eval/tx ordered -arterial doppler BLE pending r/t claudication 07/16/18 -PT eval today -lower ext US negative for stenosis with claudication complaints (3) DVT prophylaxis Current Visit: Yes Status: Acute Base Code: [id number] - Comment: 07/16/18 -pt on Eliquis 5mg BID (4) Full code status Current Visit: Yes Status: Acute Base Code: Z78.9 - OTHER SPECIFIED HEALTH STATUS Comment: 07/16/18 -full code Results - Labs Result Diagrams: 07/14/18 18:20 07/16/18 06:24 Labs Last 24 Hours: Laboratory Results - last 24 hr 07/16/18 06:24 Sodium 142 Potassium 4.5 Chloride 102 Carbon Dioxide 27.0 Anion Gap 13.0 BUN 20 Creatinine 1.2 Estimated GFR > 60 Random Glucose 88 Calcium 9.0 NT-Pro-B Natriuret Pep 62648.00 H DVT/PE Assessment - Risk for VTE Risk for VTE: No Risk Level: High Risk Assessment Date: 07/15/18 Risk Assessment Time: 11:32 VTE Orders Placed or Will Be Placed: Yes - Active Medicaitons Current Medications: Current Medications Acetaminophen (Tylenol 500mg Tab) 1,000 mg PO Q8H PRN PRN Reason: PAIN - MILD(1-4)/FEVER Last Admin: 07/16/18 08:43 Dose: 1,000 mg Apixaban (Eliquis) 5 mg PO BID [facility] Last Admin: 07/16/18 10:46 Dose: 5 mg Carvedilol (Coreg) 25 mg PO BID [facility] Last Admin: 07/16/18 10:46 Dose: 25 mg Diphenhydramine HCl (Benadryl Capsule) 25 mg PO Q6H PRN PRN Reason: INSOMNIA Furosemide (Lasix Iv) 40 mg IVP BIDDIUR [facility] Last Admin: 07/16/18 10:45 Dose: 40 mg Metformin HCl (Glucophage Ir) 500 mg PO BID [facility] Last Admin: 07/16/18 10:46 Dose: 500 mg Ondansetron HCl (Zofran Odt) 4 mg SL Q6H PRN PRN Reason: NAUSEA/VOMITING Last Admin: 07/16/18 08:44 Dose: 4 mg Entresto 49mg/51mg 1 each PO BID [facility] Last Admin: 07/16/18 10:53 Dose: 1 each Potassium Chloride (Klor-Con) 20 meq PO DAILY [facility] Last Admin: 07/16/18 10:46 Dose: 20 meq Simvastatin (Zocor) 40 mg PO QHS [facility] Last Admin: 07/15/18 21:17 Dose: 40 mg AMI Plan - Labs Result Diagrams: 07/14/18 18:20 07/16/18 06:24
--- NOTE | 2018-07-16 14:52 | Rehab Evaluation ---
Patient Information - Patient Information Diagnosis: acute decompensated CHF, A-fib Surgery: No Past Medical/Surgical Hx: PAST MEDICAL/SURGICAL HISTORY Past Surgical History herniax2 T&A defibrillator colonoscopy tumor above left eye laser surgery L eye PMH - Respiratory Hx Respiratory Disorders Yes Hx Asthma No Hx Bronchitis No Hx Chronic Obstructive No Pulmonary Disease (COPD) Hx Dyspnea No Hx Pneumonia No Hx Pulmonary Embolism Yes Hx Sleep Apnea No Hx Tuberculosis No Hx of CPAP No PMH - Cardiovascular Hx Cardiovascular Disorders Yes Hx Abnormal EKG Yes Hx Cardiac Catheterization No Hx Chest Pain Yes Hx Congestive Heart Failure Yes Hx Deep Vein Thrombosis Yes Hx Edema No Hx Heart Attack No Hx Hypertension Yes Hx Hypotension No Hx Irregular Heartbeat Yes Hx Palpitations No Hx Pacemaker/Defibrillator Yes Hx Vascular Disease No Comment: high cholesterol PMH - Neuro Hx Neurological Disorders No PMH - GI Hx Gastrointestinal Disorders Yes Hx Abdominal Pain No Hx Celiac Disease No Hx Crohn's Disease No Hx Diverticulitis No Hx Gastrointestinal Bleed No Hx Gastroesophageal Reflux No Hx Hepatitis/Jaundice No Hx Hiatal Hernia No Hx Irritable Bowel No Hx Liver Disease No Hx Nausea/Vomiting No Hx Obstructive Bowel No Hx Pancreatitis No Hx Rectal Bleeding No Hx Ulcer No Hx Weight Loss/Weight Gain No PMH - Hx Genitourinary Disorders No PMH - Endocrine Hx Endocrine Disorders Yes Hx Diabetes Yes Hx Thyroid Disease No Hx of NIDDM No PMH - Musculoskeletal Hx Musculoskeletal Disorders No PMH - Psych Hx Psychiatric Problems No PMH - Hematology/Oncology Hx Hematology/Oncology Yes Disorders Hx Anemia No Hx Blood Disorders No Hx Bruising Yes Hx Cancer Yes: angiosarcoma Hx Chemotherapy Yes Hx Radiation Therapy Yes Hx Clotting Problems No Hx Sickle Cell Disease No Hx Unexplained Bleeding No Hx Blood Transfusion Reaction No Premorbid Status: Detail (Pt lives with spouse in a tri-level house with 2 steps and no railing at the entrance. He has a tub/shower combination with a seat, no grab bar and a standard height toilet, no grab bar. He was responsible for home mgmt, meal prep, laundry and yard work until approx. 1 month ago. 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 120 degrees.) - Strength/Tone Not within normal limits (Right shoulder flexion 3-/5 within ROM limitations, left shoulder flexion 4-/5 within ROM limitations. Right elbow flexion and extension 4-/5, left elbow flexion and extension 4+/5, yovani hha 4+/5.) - Coordination Appears within normal limits for therapeutic activities (Pt presents with some mild tremors with UE activity.) - Bed Mobility Independent (Ind with supine to sit.) - Transfers Independent (Ind with sit to stand from EOB.) - Balance Balance Sitting: Fair Balance Standing: Fair - Sensation Intact - Gait Detail (Pt ambulating short distances with walker and CG assist. He became moderately short of breath with ambulation.) - ADL's/IADL's Detail (Pt is Ind using urinal, he was able to don one slipper Indly but required max assist to don second slipper. Pt became very short of breath with ADL activity.) Therapy Assessment - Therapy Assessment Detail (Pt presents with decreased endurance, increased shortness of breath and decreased Ind with self cares.) Problem List - Problem List Occupational Therapy Problem List: Detail (1. Decreased endurance with self care activities 2. Decreased Ind with total body dressing) Goals - Goals Occupational Therapy Goals: 1. Pt will be safe and Ind with total body dressing. 2. Pt will improve overall endurance to allow Ind self cares. Prognosis - Prognosis Good Plan - Plan Occupational Therapy Plan: OT 2-4 times weekly to address goals and problem list. Recommend home OT to address self cares, safety and endurance.
--- NOTE | 2018-07-16 15:22 | Rehab Evaluation ---
Patient Information - Patient Information Diagnosis: acute decompensated CHF, A-fib Ordered Treatment: PT Evaluate and Treat Status: Initial Evaluation Surgery: No Past Medical/Surgical Hx: PAST MEDICAL/SURGICAL HISTORY Past Surgical History herniax2 T&A defibrillator colonoscopy tumor above left eye laser surgery L eye PMH - Respiratory Hx Respiratory Disorders Yes Hx Asthma No Hx Bronchitis No Hx Chronic Obstructive No Pulmonary Disease (COPD) Hx Dyspnea No Hx Pneumonia No Hx Pulmonary Embolism Yes Hx Sleep Apnea No Hx Tuberculosis No Hx of CPAP No PMH - Cardiovascular Hx Cardiovascular Disorders Yes Hx Abnormal EKG Yes Hx Cardiac Catheterization No Hx Chest Pain Yes Hx Congestive Heart Failure Yes Hx Deep Vein Thrombosis Yes Hx Edema No Hx Heart Attack No Hx Hypertension Yes Hx Hypotension No Hx Irregular Heartbeat Yes Hx Palpitations No Hx Pacemaker/Defibrillator Yes Hx Vascular Disease No Comment: high cholesterol PMH - Neuro Hx Neurological Disorders No PMH - GI Hx Gastrointestinal Disorders Yes Hx Abdominal Pain No Hx Celiac Disease No Hx Crohn's Disease No Hx Diverticulitis No Hx Gastrointestinal Bleed No Hx Gastroesophageal Reflux No Hx Hepatitis/Jaundice No Hx Hiatal Hernia No Hx Irritable Bowel No Hx Liver Disease No Hx Nausea/Vomiting No Hx Obstructive Bowel No Hx Pancreatitis No Hx Rectal Bleeding No Hx Ulcer No Hx Weight Loss/Weight Gain No PMH - Hx Genitourinary Disorders No PMH - Endocrine Hx Endocrine Disorders Yes Hx Diabetes Yes Hx Thyroid Disease No Hx of NIDDM No PMH - Musculoskeletal Hx Musculoskeletal Disorders No PMH - Psych Hx Psychiatric Problems No PMH - Hematology/Oncology Hx Hematology/Oncology Yes Disorders Hx Anemia No Hx Blood Disorders No Hx Bruising Yes Hx Cancer Yes: angiosarcoma Hx Chemotherapy Yes Hx Radiation Therapy Yes Hx Clotting Problems No Hx Sickle Cell Disease No Hx Unexplained Bleeding No Hx Blood Transfusion Reaction No Premorbid Status: Detail (Pt lives with spouse in a tri-level house with 2 steps and no railing at the entrance. He has a tub/shower combination with a seat, no grab bar and a standard height toilet, no grab bar. He was responsible for home mgmt, meal prep, laundry and yard work until approx. 1 month ago. He typically ambulates without any assistive device.) Precautions: [place], Fall, Other (decreased vision in left eye) - Time With Patient Treatment Procedures: Detail (Initial Evaluation.) Subjective Information - Subjective Information Per Patient (The patient has complaints of fatigue with activity. The patient has complaints of tail bone pain but not rate it using 0-10 pain scale.) Objective Data - Mental Status Patient Orientation: Oriented x3 - Visual Perception Appears within normal limits for therapeutic activities - ROM Within normal limits (LE AROM is WNL.) - Strength/Tone Not within normal limits (The patient's LE strength is as follows bilaterally: hip flexors 3+/5, hamstrings 4-/5, quadriceps 4/5, hip adductors, hip abductors 4/5, ankle musculature 4/5.) - Bed Mobility Independent (The patient was independent with supine to and from sit transfer.) - Transfers Independent (CG for sit to stand.) - Balance Balance Sitting: Fair (The patient leaned back during LE strength testing but was able to maintain balance.) Balance Standing: Fair (The patient used walker for support to maintain standing balance.) - Gait Detail (The patient ambulated with standard walker a distance 30 feet x 1 with CG due to unsteady gait pattern. The patient exhibited shortness of breath with ambulation and with manual muscle testing.) Therapy Assessment - Therapy Assessment Detail (The patient exhibited decreased LE strength and unsteadiness with ambulation. Use of walker when ambulating at home is recommended. The patient also exhibits decreased balance and decreased ability to complete prolonged physical activity. Feel the patient would benefit from PT to improve functional activity. Ongoing home PT is recommended once the patient is discharged from [facility]) Problem List - Problem List Occupational Therapy Problem List: Detail (1. Decreased endurance with self care activities 2. Decreased Ind with total body dressing) Goals - Goals Physical Therapy Goals: 1) Increase bilateral LE strength 1/3 muscle grade to improve stability of gait. 2) The patient will ambulate household distances with appropriate assistive device with minimal shortness of breath. 3) Assess balance using standardized balance test. 4) The patient will tolerate 10 to 15 minutes of physical activity with minimal shortness of breath. Occupational Therapy Goals: 1. Pt will be safe and Ind with total body dressing. 2. Pt will improve overall endurance to allow Ind self cares. Prognosis - Prognosis Moderate Plan - Plan Physical Therapy Plan: PT once a day for ambulation, transfer training, balance and LE strengthening exercises. Ongoing PT is recommended once patient is discharged from [facility]. Occupational Therapy Plan: OT 2-4 times weekly to address goals and problem list. Recommend home OT to address self cares, safety and endurance.
[2018-07-16] MEDS: SIMVASTATIN 20 MG TABLET PO SCH (21:31)
[2018-07-17] MEDS: ACETAMINOPHEN 500 MG TABLET PO PRN ×2 (02:09→10:10)
[2018-07-17 07:08] LABS: BLOOD UREA NITROGEN 17 mg/dL (8-23); CREATININE 1.1 mg/dL (0.7-1.2); EST GLOMERULAR FILTRATION RATE > 60 mL/min; GLUCOSE,RANDOM 81 mg/dL (74-109)
[2018-07-17] MEDS: POTASSIUM CHLORIDE 20 MEQ TABLET PO SCH (10:10)
[2018-07-17] MEDS: FUROSEMIDE IV 40MG/4ML VIAL IVP SCH (10:10)
[2018-07-17] MEDS: APIXABAN 5MG TABLET PO SCH (10:11)
[2018-07-17] MEDS: CARVEDILOL 12.5 MG TABLET PO SCH (10:11)
[2018-07-17] MEDS: METFORMIN 500 MG TABLET PO SCH (10:11)
--- NOTE | 2018-07-17 10:31 | Discharge Summary ---
Providers Discharge Summary Date: 07/17/18 Date of admission: 07/14/18 19:46 Expected Date of Discharge: 07/17/18 Attending physician: MARLYN HARP Primary care physician: RICHIE MORAN D.O. Consults: Consult Orders 07/15/18 10:47 Consult - Cardiology NOW Consulting Provider: ANGEL GIRARD Physician Instructions: Reason For Exam: CHF exacerbation Does pt have current supervising nurse?: [facility] 07/16/18 07:34 Consult NOW Consulting Provider: Juan Jose Zayas Physician Instructions: consult and treat Reason For Exam: possible gall bladder Physical Exam - Vital Signs Vital Signs: Vital Signs - Last 24 Hrs Temp Pulse Resp BP Pulse Ox 07/17/18 09:00 69 20 07/17/18 06:00 97.7 F 69 20 99/73 98 07/17/18 02:00 97.4 F L 70 20 114/77 95 07/16/18 22:00 98.1 F 68 16 92/67 97 07/16/18 18:00 98 F 64 16 120/83 97 07/16/18 14:00 98 F 64 16 113/78 97 - General General Appearance: Alert, Oriented x3, Cooperative Limitations: No limitations - Head Head exam: Atraumatic, Normocephalic, Normal inspection Head exam detail: negative: Abrasion, Contusion, Ozuna's sign, General tenderness, Hematoma, Laceration - Eye Eye exam: Normal appearance. negative: Conjunctival injection, Periorbital swelling, Periorbital tenderness, Scleral icterus - ENT ENT exam: Normal exam Ear exam: negative: Auricular hematoma, Auricular trauma Nasal Exam: negative: Active bleeding, Discharge, Dried blood, Foreign body Mouth exam: Normal external inspection. negative: Drooling, Laceration, Muffled voice, Tongue elevation - Neck Neck exam: Normal inspection. negative: Meningismus, Tenderness - Respiratory Respiratory exam: Normal lung sounds bilaterally. negative: Respiratory distress, Rhonchi, Stridor, Wheezes - Cardiovascular Cardiovascular Exam: Irregular rhythm, JVD, S3 Peripheral Pulses: 3+: Radial (R), Radial (L), Dorsalis Pedis (R), Dorsalis Pedis (L) - GI/Abdominal GI/Abdominal exam: Soft, Distended. negative: Rebound, Rigid, Tenderness - Rectal Rectal exam: Deferred - exam: Deferred - Extremities Extremities exam: Pedal edema (2+ edema bilaterally). negative: Calf tenderness , Tenderness - Back Back exam: Denies: CVA tenderness (R), CVA tenderness (L) - Neurological Neurological exam: Alert, Oriented X3. negative: Motor sensory deficit - Psychiatric Psychiatric exam: Normal affect, Normal mood - Skin Skin exam: Normal color. negative: Abrasion Type of lesion: negative: abrasion Hospitalization - Hospitalization Admission Diagnosis: Acute decompsenated CHF. Atrial Fibrillation - Problem List/Discharge Diagnosis (1) CHF (congestive heart failure) Current Visit: Yes Status: Acute Discharge Diagnosis: Heart failure type: unspecified Heart failure chronicity: acute on chronic Qualified Code(s): I50.9 - Heart failure, unspecified Base Code: I50.9 - HEART FAILURE, UNSPECIFIED Comment: 07/17/18 -BNP 12,148 upon admission -IV Lasix 40mg BID changed to PO today -K and mag stable -Echo showed EF 15% (was 17% 1 year ago), per cardiology- okay to f/u OP -6 pound weight loss since admission (2) DVT prophylaxis Current Visit: Yes Status: Acute Base Code: [id number] - Comment: 07/17/18 -pt on Eliquis 5mg BID (3) Full code status Current Visit: Yes Status: Acute Base Code: Z78.9 - OTHER SPECIFIED HEALTH STATUS Comment: 07/17/18 -full code (4) Weakness Current Visit: No Status: Acute Base Code: R53.1 - WEAKNESS Comment: -up with assistance -PT/OT eval completed -lower ext US negative for stenosis with claudication complaints -will plan to d/c home with walker and home health - Hospitalization Course Disposition: Home Health Service Hospital Course: 68 yo male admitted for CHF exacerbation. Recently had Lasix decreased from 40mg PO to 20mg PO r/t weakness and feeling dehydrated. PMH Viral cardiomyopathy (2004), PPM/ICD staph infection (left chest), Afib, DM, "Angiosarcoma" req chemo/radiation, and currently gallbladder disease (oupt surgical consult previously scheduled 07/16/18 with De[facility]). Pt is inconsistent with reporting home fluid restriction but states 48oz ordered by [facility]. 07/14/18 Pt presented to ER for recent onset of BLE pitting edema and continued generalized weakness. CXR reports cardiomegaly but no noted infiltrates or pulmonary edema. +3 pitting edema BLE, BNP 12,148 BP 106/91, HR 83, RR 20, 100% RA, 97.3F WBC 5.5, Hgb 16.4, Hct 52, Plt 196 Na 140, K 5.2, Cl 101, CO2 24, Anion gap 15, BUn 19, Cr 1.2, GFR>60, glucose 107 , LFTs wnl Trop <0.010, Admit for CHF exacerbation and fluid overload Given 40mg IV lasix in ER 07/15/18 Pt resting in bed, no distress noted. 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 +2 pitting BLE edema noted, but +3 PT/DPs noted. Skin pwd. Abnormal heart sounds noted (s3), PPM/ICD noted right chest. Repeat EKG shows paced rhythm (repeated r /t appearance of changes on tele, EKG does not reveal acute process). Pt denies CP or REANNA but continues to report weakness that has been an issues for more than 1 week. States he is "due" for ECHO and was told to complete this outpt by [facility], no known h/o right heart cath per pt. Pt also reporting reese lower leg pain/ heaviness for "sometime", arterial lower ext US ordered for c/o claudication. Trop x3 negative. POC- Lasix 40mg IVP BID, monitor BMP, mag, BNP, 1500cc fluid restriction, daily wgts. Cardilogy consult and ECHO ordered. Pt to see De[facility] for surgical consult (gallbladder issues previous to admission). Continous tele monitoring. 07/17/18: Pt. is resting in bed, no distress noted. BLE edeme 2+ pitting. He denies CP and REANNA. He does report weakness, PT/OT eval completed. Vitals have remained stable, paced rhythm on tele, 6 pound weight loss since admission, bmp unremarkable. Plan to d/c home today with home health care and prescription for a walker. Pt. has f/u with Dr. Dickson on 08/07. PCP Jennie Dickson ([facility]), Marquez (surgical) Procedures: Imaging and X-Rays 07/14/18 18:19 CHEST 2 VIEWS [RAD] Stat 07/16/18 08:00 ARTERIAL DOPPLER LOWER EXT REESE [US] Urgent Cardiology Procedures 07/14/18 18:11 EKG NOW 07/14/18 19:52 Sales Commissions Analyst .Continuous 07/15/18 08:38 EKG NOW 07/15/18 10:48 Echo W/CF & Cardiac Doppler NOW Abnormal Labs: Abnormal Lab Results 07/14/18 07/14/18 07/15/18 Range/Units 18:20 18:20 10:28 MCV 97.6 H (81-97) fl MCHC 31.5 L (32-36) g/dl RDW 15.1 H (11.5-14.5) % MPV 10.6 H (7.4-10.4) fl Monocytes % 12.2 H (0-9) % Potassium 5.2 H 4.6 H (3.4-4.5) mmol/L Calcium (8.8-10.2) mg/dL Total Bilirubin 1.20 H (0.2-1.0) mg/dL NT-Pro-B Natriuret Pep 14974.00 H (<125) pg/mL 07/16/18 07/16/18 07/17/18 Range/Units 06:24 06:24 06:16 MCV (81-97) fl MCHC (32-36) g/dl RDW (11.5-14.5) % MPV (7.4-10.4) fl Monocytes % (0-9) % Potassium (3.4-4.5) mmol/L Calcium 8.7 L (8.8-10.2) mg/dL Total Bilirubin 1.10 H (0.2-1.0) mg/dL NT-Pro-B Natriuret Pep 82431.00 H (<125) pg/mL Condition at Discharge: (2) Stable Discharge Diagnosis: Acute decompensated CHF, A fib VTE Discharge VTE Reason For No Overlap Therapy: Not Indicated (on eliquis) Discharge Medications - Discharge Medications Prescriptions: Furosemide [Lasix] 20 mg PO BID #30 tablet Home Medications: Ambulatory Orders Carvedilol 25 mg PO BID 12/06/17 [Last Taken 06/24/18] Metformin HCl 500 mg PO BID 12/06/17 [Last Taken 06/24/18] Sacubitril/Valsartan [Entresto 49 mg-51 mg Tablet] 1 tab PO BID 12/06/17 [Last Taken 06/24/18] Simvastatin 40 mg PO QHS 12/06/17 [Last Taken 06/24/18] Acetaminophen [Tylenol 500Mg Tab] 500 mg PO Q6H PRN tablet 12/07/17 [Last Taken 06/24/18] Potassium Chloride [Klor-Con] 20 meq PO DAILY #30 tablet.sa 12/07/17 [Last Taken 06/24/18] Apixaban [Eliquis] 5 mg PO BID 06/22/18 [Last Taken 06/24/18] Furosemide [Lasix] 20 mg PO BID #30 tablet 07/17/18 [Last Taken Unknown] Discharge Plan - Discharge Instructions Activity at Discharge: As Per Physical Therapy Diet at Discharge: Other (1,500ml fluid restriction) Additional Instructions: Continue lasix 20mg twice daily Follow up with your PCP within 3-5 days Follow up with Dr. Dickson on 08/07 as scheduled Return to the ED if your symptoms worsen, or if you develop any chest pain. Quality Measures - Quality Measures Quality Measures: Advance Directives, Documentation of Current Medications in Medical Record, Elder Maltreatment Screen and Follow-Up Plan, Heart Failure, Screening for High Blood Pressure and F/U Documented - Current Medications Quality Measure: Measure #130: Documentation of Current Medications Documentation of Current Medications: <Current Medications Documented/Reviewed> [M0686] - Blood Pressure Screening Quality Measure: Screening for High Blood Pressure and Follow-Up Documented Does Patient Have Any of the Following: Active Dx of HTN Blood Pressure Classification: Normal BP Reading Systolic Measurement: 113 Diastolic Measurement: 79 Screening for High Blood Pressure: Patient Exclusion, Hx of HTN [G9744] - Heart Failure (FENG/ARB Therapy) Quality Measure: Heart Failure Left Ventricular Systolic Function: LV Ejection Fraction less than 40% [3021F] FENG Inhibitor or ARB Therapy for LVSD: <FENG Inhibitor or ARB therapy prescribed or currently taken> [4010F] - Heart Failure (Beta-malik Therapy) Quality Measure: Heart Failure Left Ventricular Systolic Function: LV Ejection Fraction less than 40% [3021F] Beta-Malik Therapy for LVEF < 40%: <Beta-Malik Therapy Prescribed> [M8450] - Advance Directives Quality Measure: Measure #47: Care Plan Advance Directives Established: No Advance Directives Information Provided To Patient: Declined Advance Directives on File: No Living Will: No Power of Police [employer]: No Advance Care Planning: <Care Plan/Decision Maker Documented; Discussed & Documented> [1123F] - Elder Abuse Suspicion Index Screening: Elder Abuse Suspicion Index Screening Rely on people for bathing, dressing, shopping, banking, etc: No Prevented from getting food, clothes, medication, etc: No Made to feel shamed or threatened by someone: No Forced to sign papers or use money against will: No Feel afraid, touched in ways not wanted or hurt physically: No Poor eye contact, withdrawn, malnourished, cuts or bruises: No Screening Result: Negative result EASI Reference Information: Atif ALBARRAN, Harpreet C, Felipe D, Fadi Betancourt.Development and validation of a tool to assist physicians identification of elder abuse: The Elder Abuse Suspicion Index (EASI ). Journal of Elder Abuse and Neglect, 2008; 20 (3): 276-300. - Elder Maltreatment Screen Quality Measures: Elder Maltreatment Screen and Follow-Up Plan Elder Maltreatment Screen: <Negative, No Follow-Up Plan Required> [G8734]
--- NOTE | 2018-07-17 20:03 | Cardiology Consult ---
DATE OF CONSULTATION: 07/16/2018 REASON FOR CONSULT: CHF EXACERBATION. HISTORY OF PRESENT ILLNESS: This is a pleasant 68-year-old male with a significant cardiac history. He follows with [facility]iology for his normal cardiology care. The patient has a history of known ischemic cardiomyopathy and is status post ICD implantation. The initial ICD did have a lead infection and was taken out and replaced. The patient recently had his Lasix dose decreased and presented to the Emergency Department with increasing lower extremity edema. The patient does have a history of nonischemic cardiomyopathy that dates back to approximately 2004, status post ICD implantation, atrial fibrillation, diabetes mellitus, "angiosarcoma", and gallbladder disease. The patient denies any increased dyspnea or increased symptoms of chest pain. He denies any palpitations, lightheadedness, or dizziness. He had had significant bilateral lower extremity edema, which he states is new for him. He states his last echo evaluation at [facility] demonstrated an ejection fraction of approximately 17%. The patient's EKG demonstrated atrial fibrillation, V-paced at a rate of 85 beats per minute. The patient's chest x-ray on admission demonstrated small bilateral effusions and normal vasculature. Echocardiography performed here demonstrated an ejection fraction of less than 20%, and moderate TR. The patient's proBNP level was elevated at 12,148 on admission. The patient states lower extremity edema has improved during his hospitalization. REVIEW OF SYSTEMS: CONSTITUTIONAL; Positive weakness. Denies any recent fever, chills, or significant weight change. HEENT; Denies any visual changes or hearing changes. Denies any nasal congestion or difficulty swallowing. RESPIRATORY; Denies any increased dyspnea or cough. CARDIOVASCULAR; Denies any symptoms of chest pain. Positive edema. Denies palpitations. ENDOCRINE; Denies fatigue or heat or cold intolerance. GASTROINTESTINAL; Positive for abdominal pain. Positive nausea. Negative vomiting. Negative melena. GENITOURINARY; Denies dysuria. MUSCULOSKELETAL; Positive for arthralgia and back pain. SKIN; Denies easy bruising. NEUROLOGICAL; Denies headache, dizziness, or confusion. PSYCHIATRIC; Denies anxiety. HEMATOLOGICAL; Denies a history of blood clots or anemia. SOCIAL HISTORY: Patient denies smoking, alcohol, or illicit drug use. FAMILY HISTORY: Mother had cancer. Father had heart disease. PAST MEDICAL HISTORY INCLUDES: Nonischemic cardiomyopathy. Positive diabetes. Negative thyroid disease, cancer. ALLERGIES: NO KNOWN DRUG ALLERGIES. HOME MEDICATIONS: Eliquis 5 mg p.o. b.i.d. Chloride 25 mg p.o. b.i.d. Lasix 20 mg daily Metformin 500 mg b.i.d. Zofran 4 mg sublingual p.r.n. Potassium 20 mEq daily Simvastatin 40 mg every h.s. CURRENT MEDICATIONS: Tylenol 500 mg p.o. every 6 hours p.r.n. Eliquis 5 mg p.o. b.i.d. Chloride 25 mg every day Lasix IV 40 mg IV b.i.d. Metformin 500 mg b.i.d. Zofran 4 mg sublingual p.r.n. Potassium 20 mEq daily Zocor 40 mg every day PHYSICAL EXAMINATION: VITAL SIGNS: Blood pressure 103/75. Pulse 65. Respirations 16. He is afebrile. O2 saturation 95% on room air. GENERAL: Patient is alert and oriented x3. Answers questions appropriately. Does not appear to be in any acute distress. HEENT: Normocephalic, atraumatic. Extraocular movements are intact. Pupils are equal and round. NECK: Supple without lymphadenopathy, thyromegaly, or bruits. CARDIAC: Irregularly irregular rhythm. No significant murmur appreciated. LUNGS: Clear to auscultation in all lung valdez without rales, rhonchi, or wheeze. ABDOMEN: Soft, nontender. Bowel sounds present in all four quadrants. EXTREMITIES: Trace edema. 2+ pulses bilaterally. SKIN: Warm and dry. DIAGNOSTIC STUDIES: Laboratories: Sodium 141. Potassium 4.5. Chloride 102. CO2 27. BUN 20. Creatinine 1.2. Glucose 88. WBC 5.5. Hemoglobin 16.5. Hematocrit 52. Platelet count of 196. Troponins were negative x2. proBNP on admission was 12,148. Echocardiography: Demonstrated an ejection fraction of less than 20% and moderate tricuspid regurgitation. ASSESSMENT/PLAN: 1. CHF EXACERBATION, HEART FAILURE WITH REDUCED EJECTION FRACTION: Echocardiogram demonstrates ejection fraction to be known to what is consistent for patient. Agree with continued IV diuresis. Patient responding well. Patient is on a good medication regimen including Coreg and Entresto. Patient to follow- up with [facility] after discharge. 2. DIABETES MELLITUS. 3. ATRIAL FIBRILLATION: On Eliquis for CVA prophylaxis, rate is controlled. Thank you for the opportunity to participate in this patient's care. JOB NUMBER: [id number] MTDD
== END 2018-07-17 15:58 | disposition home health service (06) | DRG 292 ==
LOC: ER 18:06 → MEDSURG 19:46
PROVIDERS: ADMIT Internal Medicine; ATTEND Internal Medicine
DX: I50.9 Heart failure, unspecified (principal); I82.5Z3 Chronic embolism and thrombosis of unspecified deep veins of distal lower extremity, bilateral; C49.9 Malignant neoplasm of connective and soft tissue, unspecified; R53.81 Other malaise; I48.91 Unspecified atrial fibrillation; Z79.01 Long term (current) use of anticoagulants; I10 Essential (primary) hypertension; E78.00 Pure hypercholesterolemia, unspecified; E11.9 Type 2 diabetes mellitus without complications; Z86.711 Personal history of pulmonary embolism; Z95.810 Presence of automatic (implantable) cardiac defibrillator
CPT/HCPCS: 71046; 80048; 80053; 82247; 83735; 83880; 84484; 85025; 90686; 93005; 93010; 93306; 93925; 94760; 96374; 99223; 99232; 99239; 99285; J1940